=== PATIENT | female | born 1955 | race Caucasian/White ===

== ENCOUNTER 2017-12-18 13:45 | Outpatient (RCR) | payer BC ==
[~2017-12-18 13:45] MED LIST: AC500T; ASCO-262 PO; ASPI-586 PO; ATRV10T; CETI10TA9 PO; CHOL500044 PO; CIPR-225 PO; CRAN1TAB5 PO; EST45C; ESTR0.5T PO; ESTR1TAB24 PO; EXCEDRINE MIGRAINE; FESO4TAB PO; FEXO1TAB49; FISH OIL OMEGA1 EAC1 PO; LISI10TA2 PO; LISI1TAB8 PO; LVT.025T PO; MELO-198 PO; MELO15TA14 PO; MMT17NA; MULT-1038 PO; NITR-65 PO; OMEP20CA6 PO; OXYC-188; PANT40TA3 PO; SIMV40TA4 PO; SRTR100T PO; [UNRECOGNIZED DRUG - OTHER]
[2018-01-29] MEDS ORDERED: CIPR-226 PO (13:48)
== END 2017-12-18 15:03 | disposition home or self-care (01) ==
PROVIDERS: ATTEND Family Medicine
DX: M51.36 Other intervertebral disc degeneration, lumbar region (principal)

== ENCOUNTER 2018-01-28 09:06 | Outpatient (CLI) | payer BC ==
[~2018-01-28] VITALS: Ht 167.6 cm; Wt 121.2 kg
[2018-01-28] MEDS ORDERED: LEVO25TA5 PO (09:31)
[2018-01-28] MEDS ORDERED: SERT100T8 PO (09:31)
[2018-01-28] MEDS ORDERED: CYAN1TAB PO (09:31)
[2018-01-28] MEDS ORDERED: OMEG-126 PO (09:31)
[2018-01-28 09:38] VITALS: BP 145/77
[2018-01-28 10:10] LABS: BASOPHILS % (AUTO) 1 % (0-10); EOSINOPHILS # (AUTO) 0.2 10^3/uL (0.0-0.3); EOSINOPHILS % (AUTO) 3 % (0-10); HEMATOCRIT 38 % (35-52); HEMOGLOBIN 12.9 G/DL (11.5-16.0); LYMPHOCYTES # (AUTO) 1.6 X 10^3 (1.0-4.0); LYMPHOCYTES % (AUTO) 25 % (12-44); MEAN CORPUSCULAR HEMOGLOBIN 29 PG (25-34); MEAN CORPUSCULAR HGB CONC 34 G/DL (32-36); MEAN CORPUSCULAR VOLUME 83 FL (80-99); MEAN PLATELET VOLUME 11.1 FL (7.4-10.4); MONOCYTES # (AUTO) 0.5 X 10^3 (0.0-1.0); MONOCYTES % (AUTO) 8 % (0-12); NEUTROPHILS % (AUTO) 63 % (42-75); PLATELET COUNT 245 10^3/uL (130-400); WHITE BLOOD COUNT 6.4 10^3/uL (4.3-11.0)
[2018-01-28 10:12] LABS: BILIRUBIN,URINE NEGATIVE (NEGATIVE); CLARITY,URINE CLEAR; COLOR,URINE YELLOW; GLUCOSE, URINE (UA) NEGATIVE (NEGATIVE); KETONES,URINE NEGATIVE (NEGATIVE); LEUKOCYTE ESTERASE ,URINE 2+ (NEGATIVE); NITRITE,URINE NEGATIVE (NEGATIVE); PH,URINE 5 (5-9); PROTEIN,URINE NEGATIVE (NEGATIVE); UROBILINOGEN,URINE NORMAL (NORMAL)
[2018-01-28 10:20] LABS: PROTHROMBIN TIME PATIENT 13.1 SEC (12.2-14.7)
[2018-01-28 10:30] LABS: ALANINE AMINOTRANSFERASE 33 U/L (0-55); ALBUMIN 4.2 GM/DL (3.2-4.5); ALKALINE PHOSPHATASE 76 U/L (40-136); BILIRUBIN,TOTAL 0.8 MG/DL (0.1-1.0); BUN/CREATININE RATIO 26; CALCIUM 9.1 MG/DL (8.5-10.1); CARBON DIOXIDE 21 MMOL/L (21-32); CHLORIDE 106 MMOL/L (98-107); CREATININE SERUM 0.74 MG/DL (0.60-1.30); GFR ESTIMATED > 60; GLUCOSE 113 MG/DL (70-105); POTASSIUM 3.8 MMOL/L (3.6-5.0); SODIUM 137 MMOL/L (135-145); TOTAL PROTEIN 6.7 GM/DL (6.4-8.2)
[2018-01-28 10:44] LABS: ERYTHROCYTE SEDIMENTATION RATE 8 MM/HR (0-30)
[2018-01-28 10:47] LABS: BACTERIA,URINE LARGE /HPF; RBC,URINE 0-2 /HPF
--- NOTE | 2018-01-28 13:53 | Diagnostic Imaging Report ---
INDICATION: Preop for right knee arthroplasty. PA and lateral chest obtained at 10:30 a.m. and compared with 10/09/2015. FINDINGS: Heart is mildly enlarged. Mediastinal silhouette is unremarkable. The lungs are clear. There is no pneumothorax or pleural fluid. There are diffuse degenerative changes in the thoracic spine. IMPRESSION: Mild cardiomegaly with no acute process in the chest. Dictated by: Dictated on workstation # [id number]
[2018-01-29] MEDS ORDERED: CIPR-226 PO (13:48)
== END 2018-01-28 16:00 | disposition home or self-care (01) ==
LOC: PREOP 09:06
PROVIDERS: ATTEND Orthopaedic Surgery
DX: Z01.810 Encounter for preprocedural cardiovascular examination (principal); Z01.811 Encounter for preprocedural respiratory examination; Z01.812 Encounter for preprocedural laboratory examination; M17.11 Unilateral primary osteoarthritis, right knee; R53.83 Other fatigue; R82.90 Unspecified abnormal findings in urine; Z11.2 Encounter for screening for other bacterial diseases
CPT/HCPCS: 36415; 71046; 80053; 81000; 85025; 85610; 85652; 86850; 86900; 86901; 87081; 87088; 87186; 93005

== ENCOUNTER 2018-02-03 06:05 | Inpatient (IN) | payer BC ==
--- NOTE | 2018-01-25 11:26 | HISTORY AND PHYSICAL ---
DATE OF SERVICE: 02/03/2018 ADMISSION HISTORY AND PHYSICAL This will be for inpatient admission on 02/03/2018 for right total knee arthroplasty. The patient will require inpatient admission due to comorbidities, gait abnormalities, pain management and physical therapy. Comorbidities include sleep apnea, arthritis, and hypertension. HISTORY: The patient is a 62-year-old female with progressively worsening right knee pain. She reports increasing pain with activities. She has undergone treatment with injections in the past with temporary relief of symptoms. She reports functional impairment because of the knee and because of activity limitations and failure to improve with conservative measures, the patient elected to proceed with surgical intervention. Radiographs reveal complete loss of medial patellofemoral joint spaces without evidence of fracture or dislocation. REVIEW OF SYSTEMS: No chest pain. No shortness of breath. No dysuria. PAST MEDICAL HISTORY: Overactive bladder, hypothyroidism, acid reflux, hypertension, hypercholesterolemia, arthritis, tinnitus, sleep apnea. PAST SURGICAL HISTORY: Tubal ligation, cholecystectomy, hysterectomy, left knee arthroscopy, left total knee arthroplasty, bilateral feet, , lumbar spine. FAMILY HISTORY: Significant for cardiovascular disease. PRIMARY CARE PROVIDER: Dr. Ibrahim. MEDICATIONS: 1. Pantoprazole. 2. Meloxicam. 3. Lisinopril. 4. Sertraline. 5. Simvastatin. 6. Toviaz. 7. Levothyroxine. 8. Vitamin D. 9. Multivitamin. 10. Zyrtec. 11. Adult aspirin. 12. Flonase. 13. Folic acid. 14. Oxycodone. ALLERGIES: SULFA AND LATEX. SOCIAL HISTORY: The patient drinks alcohol occasionally. Denies tobacco use. PHYSICAL EXAMINATION: GENERAL: The patient is well developed, well-nourished, in no acute distress. HEENT: Normocephalic and atraumatic. Pupils are equal, round, and reactive to light. Oropharynx is clear. NECK: Supple. No lymphadenopathy. LUNGS: Clear to auscultation bilaterally. HEART: Regular rate and rhythm. ABDOMEN: Soft, nontender, nondistended. EXTREMITIES EXAM: The right knee demonstrates an antalgic gait on the right. She has varus alignment with slight effusion noted. There is no erythema or warmth. Range of motion is 0/2/130. There is no varus valgus laxity. She is markedly tender along the medial joint line and has pain with Mustapha's. IMPRESSION: Severe right knee osteoarthritis, unresponsive to conservative measures. PLAN: Right total knee arthroplasty. The risks, benefits, options, ramifications and recovery were discussed at length with the patient. She understands and wished to proceed. Job ID: [id number] DocumentID: [id number] Dictated Date: 01/25/2018 10:49:04 Puncher And Fastener Date: 01/25/2018 11:26:07 Dictated By: VALERIE LOPEZ MD
[~2018-02-03] VITALS: Ht 167.6 cm; Wt 121.2 kg
[~2018-02-03 06:05] MED LIST changes: +CIPR-226 PO; +CYAN1TAB PO; +LEVO25TA5 PO; +OMEG-126 PO; +SERT100T8 PO
[2018-02-03 06:10] VITALS: BP 132/73
--- OUTSIDE RECORDS SUMMARY | 2018-02-03 06:12 | XMS REPORT | Continuity of Care Document ---
Author Author [facility] Organization [facility] Address Unknown Phone Unavailable Allergies Active Description Code Type Severity Reaction Onset Reported/Identified Relationship to Patient Clinical Status Yes No Known Drug Allergies [id number] Drug Allergy Unknown N/A 02/07/2008 Yes Sulfa (Sulfonamide Antibiotics) [id number] Drug Allergy Unknown N/A 2014 Yes latex [id number] Drug Allergy Unknown itchy all over 10/09/2015 Yes latex [id number] Drug Allergy Mild RASH/BLISTERS 01/28/2018 Yes Sulfa (Sulfonamide Antibiotics) [id number] Drug Allergy Mild GI UPSET, HIVES 01/28/2018 Medications There is no data. Problems Date Dx Coded Attending Type Code Diagnosis Diagnosed By 04/16/1502 JACQUE IBRAHIM DO Ot M51.36 OTHER INTERVERTEBRAL DISC DEGENERATION, 11/20/2014 PONCHO GIVENS, STEFANY Duff Ot 280.9 IRON DEFIC ANEMIA NOS 11/20/2014 PONCHO GIVENS, STEFANY Duff Ot 531.90 STOMACH ULCER NOS 11/20/2014 PONCHO GIVENS, STEFANY Duff Ot 562.10 DIVERTICULOSIS COLON (W/O MENT OF HEMORR 11/20/2014 STEFANY ISAAC MD Ot 792.1 ABN FIND-STOOL CONTENTS 11/28/2014 PONCHO GIVENS, STEFANY Duff Ot 285.9 11/28/2014 STEFANY ISAAC MD Ot 787.20 11/28/2014 STEFANY ISAAC MD Ot 792.1 11/28/2014 PONCHO GIVENS, STEFANY Duff Ot V72.84 10/09/2015 VALERIE LOPEZ MD Ot M17.12 UNILATERAL PRIMARY OSTEOARTHRITIS, LEFT 10/09/2015 VALERIE LOPEZ MD Ot R53.83 OTHER FATIGUE 10/09/2015 VALERIE LOPEZ MD Ot Z01.812 ENCOUNTER FOR PREPROCEDURAL LABORATORY E 10/09/2015 VALERIE LOPEZ MD Ot Z01.818 ENCOUNTER FOR OTHER PREPROCEDURAL EXAMIN 10/09/2015 VALERIE LOPEZ MD Ot Z11.2 ENCOUNTER FOR SCREENING FOR OTHER BACTER 10/10/2015 VALERIE LOPEZ MD Ot M17.12 UNILATERAL PRIMARY OSTEOARTHRITIS, LEFT 10/10/2015 VALERIE LOPEZ MD Ot R53.83 OTHER FATIGUE 10/10/2015 VALERIE LOPEZ MD Ot Z01.812 ENCOUNTER FOR PREPROCEDURAL LABORATORY E 10/10/2015 VALERIE LOPEZ MD Ot Z01.818 ENCOUNTER FOR OTHER PREPROCEDURAL EXAMIN 10/10/2015 VALERIE LOPEZ MD Ot Z11.2 ENCOUNTER FOR SCREENING FOR OTHER BACTER 10/20/2015 VALERIE LOPEZ MD Ot E03.9 HYPOTHYROIDISM, UNSPECIFIED 10/20/2015 VALERIE LOPEZ MD Ot E66.01 MORBID (SEVERE) OBESITY DUE TO EXCESS CA 10/20/2015 VALERIE LOPEZ MD Ot E78.0 PURE HYPERCHOLESTEROLEMIA 10/20/2015 VALERIE LOPEZ MD Ot H93.19 TINNITUS, UNSPECIFIED EAR 10/20/2015 VALERIE LOPEZ MD Ot I10 ESSENTIAL (PRIMARY) HYPERTENSION 10/20/2015 VALERIE LOPEZ MD Ot K21.9 GASTRO-ESOPHAGEAL REFLUX DISEASE WITHOUT 10/20/2015 VALERIE LOPEZ MD, Ot M17.12 UNILATERAL PRIMARY OSTEOARTHRITIS, LEFT 10/20/2015 VALERIE LOPEZ MD Ot N39.0 URINARY TRACT INFECTION, SITE NOT SPECIF 10/20/2015 VALERIE LOPEZ MD Ot Z68.41 BODY MASS INDEX (BMI) 40.0-44.9, ADULT 11/30/2015 VALERIE LOPEZ MD Ot Z47.1 AFTERCARE FOLLOWING JOINT REPLACEMENT FELIZ 11/30/2015 VALERIE LOPEZ MD Ot Z96.652 PRESENCE OF LEFT ARTIFICIAL KNEE JOINT 10/29/2017 STEFANY ISAAC MD Ot 285.9 ANEMIA NOS 10/29/2017 STEFANY ISAAC MD Ot 787.20 DYSPHAGIA, UNSPECIFIED 10/29/2017 STEFANY ISAAC MD Ot 792.1 ABN FIND-STOOL CONTENTS 10/29/2017 STEFANY ISAAC MD Ot V72.84 EXAM PRE-OPERATIVE NOS 12/03/2017 JACQUE IBRAHIM DO Ot M51.36 OTHER INTERVERTEBRAL DISC DEGENERATION, 12/18/2017 JACQUE IBRAHIM DO Ot M51.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 10/17/2015 Results Test Result Range Methicillin resistant Staphylococcus aureus (MRSA) screening culture - 09:45 Methicillin resistant Staphylococcus aureus (MRSA) screening culture NEG NRG Complete blood count (CBC) with automated white blood cell (WBC) differential - 01/28/18 09:50 Blood leukocytes automated count (number/volume) 6.4 10*3/uL 4.3-11.0 Blood erythrocytes automated count (number/volume) 4.50 10*6/uL 4.35-5.85 Venous blood hemoglobin measurement (mass/volume) 12.9 g/dL 11.5-16.0 Blood hematocrit (volume fraction) 38 % 35-52 Automated erythrocyte mean corpuscular volume 83 [foz_us] 80-99 Automated erythrocyte mean corpuscular hemoglobin (mass per erythrocyte) 29 pg 25-34 Automated erythrocyte mean corpuscular hemoglobin concentration measurement ( mass/volume) 34 g/dL 32-36 Automated erythrocyte distribution width ratio 14.0 % 10.0-14.5 Automated blood platelet count (count/volume) 245 10*3/uL 130-400 Automated blood platelet mean volume measurement 11.1 [foz_us] 7.4-10.4 Automated blood neutrophils/100 leukocytes 63 % 42-75 Automated blood lymphocytes/100 leukocytes 25 % 12-44 Blood monocytes/100 leukocytes 8 % 0-12 Automated blood eosinophils/100 leukocytes 3 % 0-10 Automated blood basophils/100 leukocytes 1 % 0-10 Blood neutrophils automated count (number/volume) 4.0 10*3 1.8-7.8 Blood lymphocytes automated count (number/volume) 1.6 10*3 1.0-4.0 Blood monocytes automated count (number/volume) 0.5 10*3 0.0-1.0 Automated eosinophil count 0.2 10*3/uL 0.0-0.3 Automated blood basophil count (count/volume) 0.0 10*3/uL 0.0-0.1 Comprehensive metabolic panel - 01/28/18 09:50 Serum or plasma sodium measurement (moles/volume) 137 mmol/L 135-145 Serum or plasma potassium measurement (moles/volume) 3.8 mmol/L 3.6-5.0 Serum or plasma chloride measurement (moles/volume) 106 mmol/L 98-107 Carbon dioxide 21 mmol/L 21-32 Serum or plasma anion gap determination (moles/volume) 10 mmol/L 5-14 Serum or plasma urea nitrogen measurement (mass/volume) 19 mg/dL 7-18 Serum or plasma creatinine measurement (mass/volume) 0.74 mg/dL 0.60-1.30 Serum or plasma urea nitrogen/creatinine mass ratio 26 NRG Serum or plasma creatinine measurement with calculation of estimated glomerular filtration rate > NRG Serum or plasma glucose measurement (mass/volume) 113 mg/dL 70-105 Serum or plasma calcium measurement (mass/volume) 9.1 mg/dL 8.5-10.1 Serum or plasma total bilirubin measurement (mass/volume) 0.8 mg/dL 0.1-1.0 Serum or plasma alkaline phosphatase measurement (enzymatic activity/volume) 76 U/L 40-136 Serum or plasma aspartate aminotransferase measurement (enzymatic activity/ volume) 30 U/L 5-34 Serum or plasma alanine aminotransferase measurement (enzymatic activity/volume ) 33 U/L 0-55 Serum or plasma protein measurement (mass/volume) 6.7 g/dL 6.4-8.2 Serum or plasma albumin measurement (mass/volume) 4.2 g/dL 3.2-4.5 CALCIUM CORRECTED 8.9 mg/dL 8.5-10.1 PT panel in platelet poor plasma by coagulation assay - 01/28/18 09:50 Prothrombin time (PT) in platelet poor plasma by coagulation assay 13.1 s 12.2-14.7 INR in platelet poor plasma or blood by coagulation assay 1.0 0.8-1.4 Erythrocyte sedimentation rate by westergren method - 01/28/18 09:50 Erythrocyte sedimentation rate by westergren method 8 mm 0-30 Blood type T Indirect antibody screen panel - 01/28/18 09:50 ABO+Rh group OP NRG Blood group antibody screen NEGATIVE NRG Complete urinalysis with reflex to culture - 01/28/18 09:55 Urine color determination YELLOW NRG Urine clarity determination CLEAR NRG Urine pH measurement by test strip 5 5-9 Specific gravity of urine by test strip 1.020 1.016- 1.022 Urine protein assay by test strip, semi-quantitative NEGATIVE NEGATIVE Urine glucose detection by automated test strip NEGATIVE NEGATIVE Erythrocytes detection in urine sediment by light microscopy 1+ NEGATIVE Urine ketones detection by automated test strip NEGATIVE NEGATIVE Urine nitrite detection by test strip NEGATIVE NEGATIVE Urine total bilirubin detection by test strip NEGATIVE NEGATIVE Urine urobilinogen measurement by automated test strip (mass/volume) NORMAL NORMAL Urine leukocyte esterase detection by dipstick 2+ NEGATIVE Automated urine sediment erythrocyte count by microscopy (number/high power field) [HPF] NRG Automated urine sediment leukocyte count by microscopy (number/high power field ) [HPF] NRG Bacteria detection in urine sediment by light microscopy LARGE NRG Squamous epithelial cells detection in urine sediment by light microscopy 2-5 NRG Crystals detection in urine sediment by light microscopy NONE NRG Casts detection in urine sediment by light microscopy NONE NRG Mucus detection in urine sediment by light microscopy NEGATIVE NRG Complete urinalysis with reflex to culture YES NRG Bacterial urine culture - 01/28/18 09:55 Bacterial urine culture [id number] NRG COLONY COUNT >100,000/ML NRG FTX;REPORTABLE RML SENT SENSITIVITY REPORT 01/30 09:05 NRG RML Sensitivity Panel - 01/28/18 09:55 Gentamicin susceptibility test by minimum inhibitory concentration < = NRG Trimethoprim/sulfamethoxazole susceptibility test by minimum inhibitoryconcentration <= NRG Levofloxacin susceptibility test by minimum inhibitory concentration > NRG Ampicillin susceptibility test by minimum inhibitory concentration < = NRG Cefazolin susceptibility test by minimum inhibitory concentration < = NRG Ceftriaxone susceptibility test by minimum inhibitory concentration <= NRG Ciprofloxacin susceptibility test by minimum inhibitory concentration > NRG Meropenem susceptibility test by minimum inhibitory concentration < = NRG Nitrofurantoin susceptibility test by minimum inhibitory concentration <= NRG Amoxicillin and clavulanate potassium susc TY <= NRG Encounters ACCT No. Visit Date/Time Discharge Status Pt. Type Provider Facility Loc./Unit Complaint [id number] 01/28/2018 09:06:00 01/28/2018 16:00:00 DIS Outpatient VALERIE LOPEZ MD [facility] PREOP OSTEOARTHRITIS RIGHT KNEE [id number] 12/18/2017 13:45:00 12/18/2017 15:03:00 DIS [id number] 11/30/2015 13:00:00 11/30/2015 15:20:00 DIS Outpatient VALERIE LOPEZ MD [facility] REHAB OA L KNEE [id number] 10/17/2015 06:02:00 10/20/2015 14:45:00 DIS Inpatient VALERIE LOPEZ MD [facility] 4TH LEFT KNEE DJD [id number] 10/09/2015 08:30:00 10/09/2015 09:35:00 DIS Outpatient VALERIE LOPEZ MD [facility] PREOP LEFT KNEE DJD [id number] 11/20/2014 09:51:00 11/20/2014 12:30:00 DIS Outpatient PONCHO GIVENS, STEFANY Duff [facility] ANEMIA; DIFFICULTY SWALLOWING; HEMOCCULT + STOOLS [id number] 11/16/2014 06:35:00 11/16/2014 23:59:59 CLS Outpatient PONCHO GIVENS, STEFANY Duff [facility] PREOP ANEMIA; DIFFICULTY SWALLOWING; HEMOCCULT + STOOLS [id number] 10/01/2012 11:23:00 10/01/2012 23:59:59 CLS Outpatient [id number] 02/03/2018 08:00:00 PEN Preadmit VALERIE LOPEZ MD OSTEOARTHRITIS RIGHT KNEE 07/201711/01/2017 06:12:40 11/01/2017 23:59:59 CLS Outpatient Jacque Ibrahim
[2018-02-03] MEDS ORDERED: CEFUROXIME INJECTION 1,500 MG in NS (IVPB) 50 ML IV ONE (06:30)
[2018-02-03] MEDS ORDERED: MIDAZOLAM 2 MG/2 ML (VERSED) VIAL ONE ×2 (06:31→06:58)
[2018-02-03] MEDS ORDERED: FAMOTIDINE 20MG/2ML IV (PEPCID) IV ONE (06:45)
[2018-02-03] MEDS ORDERED: proPOfol 200 MG/20 ML (DIPRIVAN) VIAL IV ONE (06:58)
[2018-02-03] MEDS ORDERED: ONDANSETRON 4 MG/2 ML (SDV) Z0FRAN ONE (06:58)
[2018-02-03] MEDS ORDERED: DEXAMETHASONE 10 MG/ML (DECADRON) 1 ML VIAL ONE (06:58)
[2018-02-03] MEDS ORDERED: fentaNYL INJECTION 100 MCG/2 ML AMP ONE (06:58)
[2018-02-03] MEDS ORDERED: LIDOCAINE PF 2% 2 ML (XYLOCAINE) VIAL ONE (06:58)
[2018-02-03] MEDS ORDERED: SEVOFLURANE (ULTANE) 15 ML INHAL SOLN ONE ×4 (07:07→08:34)
[2018-02-03] MEDS: LACTATED RINGERS 1,000 ML IV PRN ×2 (07:09→08:18)
--- NOTE | 2018-02-03 07:24 | Progress Note-Pre Operative ---
Pre-Operative Progress Note H&P Reviewed The H&P was reviewed, patient examined and no changes noted. Date Seen by Provider: Feb 03, 2018 Time Seen by Provider: 07:11 Date H&P Reviewed: Feb 03, 2018 Time H&P Reviewed: 07:11 Pre-Operative Diagnosis: right knee primary osteoarthritis VALERIE LOPEZ MD Feb 03, 2018 07:24
--- NOTE | 2018-02-03 07:25 | Progress Note-Post Operative ---
Post-Operative Progess Note Surgeon (s)/Fur Examiner (s) Surgeon VALERIE LOPEZ MD Fur Examiner: Eduardo Read Pre-Operative Diagnosis right knee primary osteoarthritis Post-Operative Diagnosis right knee primary osteoarthritis Procedure & Operative Findings Date of Procedure 02/03/18 Procedure Performed/Findings right total knee arthroplasty Anesthesia Type GETA Estimated Blood Loss Estimated blood loss (mL): minimal Specimens/Packing Specimens Removed none Packing: none VALERIE LOPEZ MD Feb 03, 2018 07:25
[2018-02-03] MEDS ORDERED: OXYC1TAB87 PO (07:27)
--- NOTE | 2018-02-03 07:29 | D/C HH Face to Face Order ---
D/C Face to Face Orders Instructions for Patient Patient Instructions/FollowUp: three weeks Physician to follow Patient: three weeks Discharge Diet for Home: Regular Diet Patient Data-Allergies,Ht & Wt Patient Allergies: Coded Allergies: Sulfa (Sulfonamide Antibiotics) (Unverified Allergy, Mild, GI UPSET, HIVES , 01/28/18) latex (Verified Allergy, Mild, RASH/BLISTERS, 01/28/18) Height (Feet): 5 Height (Inches): 6.00 Weight (Pounds): 267 Weight (Ounces): 2.0 Home Health Need/Face to Face Date of Face to Face: Feb 03, 2018 Clinical Findings: Instability, Muscle weakness, Pain with ambulation, Unsteady gait I have seen Pt [id number]: Yes Discharged To: Home Diagnosis/Conditions: right total knee arthroplasty Patient is Homebound due to: Muscle weakness Homebound Status Due to the above stated illness, injury or surgical procedure (medical condition or diagnosis) and associated clinical findings, the patient is homebound because of his/her inability to leave home except with aid of a supportive device and/or person AND leaving the home requires a considerable and taxing effort or is medically contraindicated. Pt req the following assistanc: [facility] Nursing Orders Home Health Services Order: Physical Therapy-Evaluate & Treat Home Health Infusion Therapy Line Start Date: Feb 03, 2018 Line Start Time: 624 Line Type: Peripheral IV Site Location: Forearm Therapy Orders Therapy Orders: Physical Therapy, PT to assess for OT Therapy Specific Orders: Eval assistive deivces (DC right knee morenita and apply steri strips 02/17/18), Teach enviro modifications/safety, Gait training, Increase strength/endurance, Provider maintenance therapy, Restore ROM Certify Stmt I certify that this patient is under my care and that I, a nurse practitioner or a physician; a dietary assistant working with me, had a face to face encounter that - meets the physician face to face encounter requirements with this patient as dated. VALERIE LOPEZ MD Feb 03, 2018 07:29
[2018-02-03] MEDS ORDERED: INTRA-ARTICULAR IU ONE ×5 (07:30)
[2018-02-03] MEDS ORDERED: diphenhydrAMINE 50 MG/ML INJ (BENADRYL) IVP PRN (07:30)
[2018-02-03] MEDS ORDERED: ONDANSETRON 4 MG/2 ML (SDV) Z0FRAN IVP PRN ×2 (07:30→09:15)
[2018-02-03] MEDS ORDERED: oxyCODONE/APAP 5/325MG (PERCOCET 5) TABLET PO PRN (07:30)
[2018-02-03] MEDS ORDERED: ROCURONIUM 10 MG/ML 5 ML SYRINGE IV ONE (07:51)
[2018-02-03] MEDS ORDERED: morphine INJ 10 MG/ML 1ML (SYR OR VIAL) ONE (08:48)
[2018-02-03] MEDS ORDERED: MEPERIDINE (DEMEROL) INJ 50 MG/ML IVP ONE (09:15)
[2018-02-03] MEDS ORDERED: fentaNYL INJECTION 100 MCG/2 ML AMP IVP ONE (09:15)
[2018-02-03] MEDS ORDERED: morphine INJ 10 MG/ML 1ML (SYR OR VIAL) IVP ONE (09:15)
[2018-02-03 10:10] VITALS: BP 134/66
--- NOTE | 2018-02-03 10:16 | Progress Note-Standard ---
Standard Progress Note Progress Notes/Assess & Plan Date Seen by a Provider: Feb 03, 2018 Time Seen by a Provider: 09:30 Progress/Assessment & Plan NO complaints radiographs--HW well positioned without fracture RLE--intact DF and PF of toes and ankle. sensation intact. 2 plus DP pulse with brisk cap refill s/p RTKA mobilize as able VALERIE LOPEZ MD Feb 03, 2018 10:16
--- NOTE | 2018-02-03 10:18 | OPERATIVE REPORT ---
DATE OF SERVICE: 02/03/2018 PREOPERATIVE DIAGNOSIS: Right knee primary osteoarthritis. POSTOPERATIVE DIAGNOSIS: Right knee primary osteoarthritis. PROCEDURE: Right total knee arthroplasty. SURGEON: Ochoa Lopez MD. ASSOCIATE PATHOLOGIST: Eduardo Read, who assisted throughout the procedure and closed the incision. ANESTHESIA: General endotracheal by Eduardo Beltran CRNA. TOURNIQUET TIME: Tourniquet time is 55 minutes at 300 mmHg. ESTIMATED BLOOD LOSS: Minimal. DRAINS: None. COMPLICATIONS: None. POSTOPERATIVE PLAN: Routine total knee arthroplasty protocol. The patient was transferred to the recovery room awake and in stable condition. MATERIALS: MicroPort cemented size 5 femur, cemented size 5 tibia with a 12 mm insert and a cemented size 32 patellar button. STATEMENT OF MEDICAL NECESSITY: The patient is a 62-year-old female with a longstanding progressive right knee pain. Radiographs reveal complete loss of medial and patellofemoral joint spaces. She has undergone treatment with injections, anti-inflammatories and rest without relief. She reported functional impairment in her knee. Due to progressive symptoms and failure to improve with conservative measures, the patient elected to proceed with surgical intervention. DESCRIPTION OF PROCEDURE: After risks and benefits of the procedure were discussed and questions were answered, an informed consent was signed and placed on the chart. The operative site was confirmed in the preoperative holding area initialed by the surgeon. The patient was transported to the operating room and after adequate levels of general endotracheal anesthetic were obtained, a timeout was called confirming the operative site. The right lower extremity was then prepped and draped in the usual sterile fashion with the leg elevated and tourniquet was inflated to 300 mmHg. Standard anterior approach was utilized. Hemostasis was obtained with a cautery. A medial parapatellar arthrotomy was performed leaving 1 cm cuff on the patella for later reattachment. A portion of the fat pad was resected and a subperiosteal release was performed at the proximal and medial tibia with a curved osteotome being careful to stay on the bony surfaces. The ACL was resected. The intramedullary guide was passed into the femur and the distal cutting block was placed. The distal cut was made and the femur was sized to a size 5. The 5 cutting block was placed parallel to the epicondylar axis and cuts were made from posterior to anterior. The trochlear guide was placed and the trochlear cut was made. A subperiosteal release was then carefully performed on the posterior distal femur, being careful to stay on the bony surface. Intramedullary guide was then passed into the tibia and the cutting block was placed. The drop melecio transected the intermalleolar axis and the cut was made. The #5 baseplate was placed. Again, the drop melecio transected the intermalleolar axis and this was prepared with a drill and keel punch. The trials were inserted and the patella was prepared using the freehand technique. A peg guide was placed and the peg holes were drilled. A 12 mm insert provided full extension with greater than 120 degrees of flexion with gravity. No anterior/posterior or medial/lateral laxity in flexion or extension. The tibia was then prepared with a drill and keel punch. The trials were removed. The joint was irrigated with a pulse lavage. The periarticular block was placed in the posterior capsule, medial and lateral retinaculum, extensor mechanism and subcutaneous tissues. The joint was further irrigated. The bone ends were irrigated and dried. The tibial baseplate was cemented into position. Excessive cement was removed. The superior surface was irrigated and dried and the polyethylene insert was placed. Distal femur was irrigated and dried and the femoral prosthesis was cemented into position removing excess cement. The knee was brought into full extension until the cement had cured. The undersurface of the patella was irrigated and dried. The patellar button was cemented into position. Excessive cement was removed. Once the cement had cured, the knee was taken through range of motion. Full extension was easily obtained in 120 degrees of flexion with gravity was easily obtained. The patella tracked well. There was no anterior/posterior or medial/lateral laxity in flexion or extension. The joint was further irrigated with a pulse lavage using a total of 6 liters throughout the procedure. The arthrotomy was closed with #2 FiberWire in a [id number] interrupted fashion. The knee was flexed. No undue tension at the repair site and the patella tracked well. Subcutaneous tissues were irrigated. A 2-0 Vicryl was used to reapproximate the deep layer and 2-0 Vicryl for the superficial subcutaneous layer, morenita were used on the skin. Soft dressing was applied. The tourniquet was deflated and the patient was transferred to the recovery room in awake and in stable condition. Job ID: [id number] DocumentID: [id number] Dictated Date: 02/03/2018 09:08:47 Tobacco Stripper Hand Date: 02/03/2018 10:17:47 Dictated By: OCHOA LOPEZ MD
[2018-02-03] MEDS: NS IV 1000 ML 1,000 ML IV SCH ×3 (10:35→21:42)
[2018-02-03] MEDS: morphine PCA 30 MG/30 ML VIAL IV PRN (10:38)
--- NOTE | 2018-02-03 11:15 | Diagnostic Imaging Report ---
Right knee at 9:50. AP and lateral views of the right knee were received from the OR. There are no prior studies available for comparison. There is a total knee prosthesis in place. The prosthetic components appear to be in good position. There are skin morenita along the anterior aspect of the knee joint and there is some gas in the soft tissues about the anterior aspect of the knee joint as well. There is no fracture or acute bony abnormality noted. Impression: Stable postoperative right knee. Dictated by: Dictated on workstation # [id number]
[2018-02-03 12:54] VITALS: BP 122/61
[2018-02-03] MEDS: SENNA W/DOCUSATE (SENOKOT S) TABLET PO SCH ×2 (13:54→21:30)
[2018-02-03] MEDS ORDERED: FLU QUADRIvalent (5+ YOA) 2018-2019 (AFLURIA) 0.5 ML IM ONE (14:00)
[2018-02-03] MEDS: oxyCODONE/APAP 5/325MG (PERCOCET 5) TABLET PO PRN ×2 (14:35→21:30)
--- NOTE | 2018-02-03 15:06 | Physical Therapy Evaluation ---
PT Evaluation-General Medical Diagnosis Admission Date Feb 03, 2018 at 06:05 Medical Diagnosis: R TKA Onset Date: Feb 03, 2018 Therapy Diagnosis Therapy Diagnosis: impaired mobility, strength, balance, and ROM s/p R TKA Height/Weight Height (Feet): 5 Height (Inches): 6.00 Weight (Pounds): 267 Weight (Ounces): 2.0 Precautions Precautions/Isolations: Standard Precautions Weight Bear Status Right Lower Extremity: Right Weight Bearing/Tolerated Left Lower Extremity: Left Full Weight Bearing Referral Physician: Daniel Reason for Referral: Evaluation/Treatment Medical History Pertinent Medical History: Arthritis, HTN, Hypothroidism Additional Medical History PAST MEDICAL HISTORY: Overactive bladder, hypothyroidism, acid reflux, hypertension, hypercholesterolemia, arthritis, tinnitus, sleep apnea. PAST SURGICAL HISTORY: Tubal ligation, cholecystectomy, hysterectomy, left knee arthroscopy, left total knee arthroplasty, bilateral feet, , lumbar spine. Reviewed History: Yes Social History Home: Single Level Current Living Status: Spouse Entry Into Home: Stairs With Railing PT Steps Into Home: 2 Prior/Core FIM Prior Level of Function Functional [place] Measure 0=Not Assessed/NA 4=Minimal Assistance 1=Total Assistance 5=Supervision or Setup 2=Maximal Assistance 6=Modified [place] 3=Moderate Assistance 7=Complete [place] Bed Mobility: 7 Transfers (B,C,W/C) (FIM): 7 Gait: 7 PT Evaluation-Current Subjective pt in bed pre tx, agrees to PT, pain 5/10 R knee Pt/Family Goals to be more active and independent in the community and at home Objective Patient Orientation: Person, Place, Situation Attachments: SCD's, Oxygen, Polar Pack, IV ROM/Strength ROM Lower Extremities right knee flexion 60 degrees, extension +5 degrees Strength Lower Extremities decreased R dorsiflexion Neuromuscular (Tone, Coordination, Reflexes) NT Sensory Vision: Functional Hearing: Functional Sensation Right Lower Extremit: Intact Sensation Left Lower Extremity: Intact Sensation Lower Extremities pt notes numbness in R lateral calf and foot, but light touch sensation intact Transfers Functional [place] Measure 0=Not Assessed/NA 4=Minimal Assistance 1=Total Assistance 5=Supervision or Setup 2=Maximal Assistance 6=Modified [place] 3=Moderate Assistance 7=Complete [place] Transfers (B, C, W/C) (FIM): 4 Scootin Rollin Supine to/from Sit: 4 Sit to/from Stand: 4 supine<->sit Adam w/ getting RLE into/out of bed, sit<->stand CGA, cues needed to push off bed instead of grabbing walker Gait Mode of Locomotion: Walk Anticipated Mode of Locomotion: Walk Gait (FIM): 1 Distance (FIM): 1=up to 49 ft Distance: 15' Gait Level of Assist: 4 Gait Persons Needed: 1 Gait Assistive Device: FWW Comments/Gait Description pt ambulates 15' w/ FWW and CGA, pt takes short shuffled steps and demonstrates R foot drop, but no LOB Balance Sitting Static: Normal Sitting Dynamic: Normal Standing Static: Normal Standing Dynamic: Normal Treatment right TKA protocol x10 (AP, QS, HS, SAQ, SLR), CPM donned and set to patient and set to 50/-2, patient in bed post tx with nurse call, phone, tray, family in the room. Polar care and SCD's on. Assessment/Needs impaired strength, ROM, balance, and mobility s/p R TKA Rehab Potential: Fair PT Short Term Goals Short Term Goals Time Frame: Feb 10, 2018 Transfers (B,C,W/C) (FIM): 5 Gait (FIM): 5 Distance (FIM): 3=150 ft Gait Distance Comment: 200' Gait Level of Assist: 5 Gait Assistive Device: FWW PT Plan Problem List Problem List: Activity Tolerance, Functional Strength, Safety, Balance, Gait, Transfer, Bed Mobility, ROM Treatment/Plan Treatment Plan: Continue Plan of Care Treatment Plan: Bed Mobility, Education, Functional Activity Santy, Functional Strength, Gait, Safety, Therapeutic Exercise, Transfers Treatment Duration: Feb 10, 2018 Frequency: 11 times per week Estimated Hrs Per Day: .25 hour per day (15-30') Patient and/or Family Agrees t: Yes Safety Risks/Education Patient Education: Gait Training, Transfer Techniques, Reviewed Precautions, Reviewed Use of Ice, Correct Positioning, Safety Issues Teaching Recipient: Patient Teaching Methods: Demonstration, Discussion Response to Teaching: Reinforcement Needed Discharge Recommendations Plan Pt will perform bed mobility and transfer training, gait training, balance training, functional strengthening/AROM, endurance training, and education to be more active and independent in the community and at home. Therapy D/C Recommendations: Home w/ Family Support Time/GCodes Time In: 1435 Time Out: 1500 Total Billed Treatment Time: 25 Total Billed Treatment 1 visit EVL 15' GT 10' KRTEK,ARACELIS PT Feb 03, 2018 15:06
[2018-02-03] MEDS: CEFUROXIME INJECTION 750 MG in NS (IVPB) 50 ML IV SCH (15:22)
[2018-02-03 16:45] VITALS: BP 120/60
--- NOTE | 2018-02-03 19:49 | Consultation ---
History of Present Illness History of Present Illness Patient Consulted On(lily/time) 02/03/18 19:43 Date Seen by Provider: Feb 03, 2018 Time Seen by Provider: 19:44 History of Present Illness This is a 62 year old female who is status right total knee arthroplasty. Her pain is currently well controlled. I am asked to consult for medical management. Allergies and Home Medications Allergies Coded Allergies: Sulfa (Sulfonamide Antibiotics) (Unverified Allergy, Mild, GI UPSET, HIVES , 01/28/18) latex (Verified Allergy, Mild, RASH/BLISTERS, 01/28/18) Home Medications Aspirin 81 Mg Tablet.dr, 162 MG PO DAILY, (Reported) TAKES 2 (81MG) TABLETS Cetirizine HCl 10 Mg Tablet, 10 MG PO HS, (Reported) Cholecalciferol (Vitamin D3) 5,000 Unit Tablet, 5,000 UNIT PO DAILY, (Reported) Cyanocobalamin/FA/Pyridoxine 1 Each Tablet, 1 TAB PO HS, (Reported) Fesoterodine Fumarate 4 Mg Tab.sr.24h, 4 MG PO HS, (Reported) Levothyroxine Sodium 25 Mcg Tablet, 25 MCG PO DAILY, (Reported) Lisinopril/Hydrochlorothiazide 1 Each Tablet, 1 TAB PO DAILY, (Reported) Meloxicam 15 Mg Tablet, 15 MG PO DAILY, (Reported) Multivit/Iron/FA/K/Herb No.244 1 Each Tablet, 1 TAB PO DAILY, (Reported) [place]-3/Dha/Epa/Fish Oil 1 Each Capsule.dr, 1,200 MG PO DAILY, (Reported) Oxycodone HCl/Acetaminophen 1 Each Tablet, 1 EACH PO Q4H PRN for PAIN-MODERATE Prescribed by: VALERIE LOPEZ on 02/03/18 0727 Pantoprazole Sodium 40 Mg Tablet.dr, 40 MG PO HS, (Reported) Sertraline HCl 100 Mg Tablet, 100 MG PO DAILY, (Reported) Simvastatin 40 Mg Tablet, 40 MG PO HS, (Reported) Patient Home Medication List Home Medication List Reviewed: Yes Past Jbeumsq-Lbnswf-Cfzwjj Hx Patient Social History Alcohol Use: Denies Use Recreational Drug Use: No Smoking Status: Never a Smoker Recent Foreign Travel: No Contact w/Someone Who Travel: No Recent Infectious Disease Expo: No Recent Hopitalizations: No Physical Abuse: No Sexual Abuse: No Mistreated: No Fear: No Seasonal Allergies Seasonal Allergies: Yes Past Medical History Surgeries: Yes (back sx, right knee scope, bilat foot sx, L TKR) Respiratory: Yes Sleep Apnea Currently Using CPAP: Yes Cardiac: Yes Neurological: Yes (NUMBNESS IN FEET) Reproductive Disorders: No Sexually Transmitted Disease: No HIV/AIDS: No Genitourinary: Yes (GETS UTI EVERYTIME HAS SURGERY) UTI-Chronic Gastrointestinal: Yes (HX ULCER) Gastroesophageal Reflux, Ulcer Musculoskeletal: Yes (OSTEOARTHRITS) Arthritis, Chronic Back Pain Endocrine: Yes Hypothyroidsim HEENT: Yes (READING GLASSES) Loss of Vision: Bilateral Hearing Impairment: Hard of Hearing, Bilateral Hearing Aide Cancer: No Psychosocial: Yes Anxiety Integumentary: No Blood Disorders: No Adverse Reaction/Blood Tranf: No (N/A) Family Medical History Arthritis 19 FATHER 19 MOTHER G8 BROTHER G8 SISTER Completed stroke 19 FATHER Diabetes mellitus 19 MOTHER Hypertension 19 FATHER 19 MOTHER G8 BROTHER G8 SISTER Kidney disease G8 SISTER Thyroid disease G8 SISTER Review of Systems-General Constitutional: weakness EENTM: No see HPI, No no symptoms reported, No ear discharge, No hearing loss, No ear pain, No blurred vision, No double vision, No eye pain, No tearing, No vision loss, No dental problems, No hoarseness, No mouth pain, No mouth swelling , No epistaxis, No nose congestion, No nose pain, No throat pain, No throat swelling, No other Respiratory: No no symptoms reported, No see HPI, No cough, No dyspnea on exertion, No hemoptysis, No orthopnea, No phlegm, No short of breath, No stridor , No wheezing, No other Cardiovascular: edema Gastrointestinal: No RUQ, No LUQ, No RLQ, No LLQ, No no symptoms reported, No see HPI, No abdominal pain, No constipation, No diarrhea, No dysphagia, No hematemesis, No heartburn, No jaundice, No loss of appetite, No melena, No nausea, No vomiting, No other Genitourinary: No no symptoms reported, No see HPI, No decreased output, No discharge, No dysuria, No frequency, No hematuria, No hesitancy, No incontinence , No nocturia, No pain, No other Musculoskeletal: joint pain (right knee) Psychiatric/Neurological: Weakness Physical Exam-General Problems Physical Exam Vital Signs Vital Signs - First Documented 02/03/18 02/03/18 06:10 10:10 Temp 98.7 Pulse 64 Resp 18 B/P (MAP) 132/73 (92) Pulse Ox 95 O2 Delivery Room Air O2 Flow Rate 2.00 Capillary Refill : General Appearance: WD/WN, no apparent distress Neck: supple Respiratory: lungs clear, decreased breath sounds, other (wearing oxygen) Cardiovascular: regular rate, rhythm, gallop/S4 Gastrointestinal: normal bowel sounds, non tender, soft Rectal: deferred Back: no CVA tenderness Extremities: non-tender, no calf tenderness, swelling (mild with JOSE hose in place and SCDs) Neurologic/Psychiatric: alert, oriented x 3 Skin: warm/dry, other (right knee dressing in place and dry) Assessment/Plan Assessment/Plan Admission Diagnosis/Plan 1. Hypertension--restart home lisinopril hct and monitor BP 2. ANNIE--resume home CPAP settings 3. Hypothyroidism--resume levothyroxine 4. Hyperlipidemia--resume pravachol 5. GERD--resume protonix 6. Right Knee Osteoarthritis/Pain--S/P right total knee arthroplasty--pain control, monitor BMs, lovenox for DVT prophylaxis, PT, IS Clinical Quality Measures DVT/VTE Risk/Contraindication: Risk Factor Score Per Nursin RFS Level Per Nursing on Admit: 3=High JACQUE MOLINA DO Feb 03, 2018 19:49
[2018-02-03 20:25] VITALS: BP 136/65
[2018-02-03] MEDS: PANTOPRAZOLE 40 MG (PROTONIX) TAB PO SCH (21:29)
[2018-02-03] MEDS: TOLTERODINE LA 2 MG (DETROL LA) CAP PO SCH (21:30)
[2018-02-03] MEDS: SIMvastatin 40 MG (ZOCOR) TAB PO SCH (21:30)
[2018-02-03] MEDS: ACETAMINOPHEN 325 MG TABLET PO PRN (21:31)
[2018-02-04] MEDS: CEFUROXIME INJECTION 750 MG in NS (IVPB) 50 ML IV SCH (00:18)
[2018-02-04 00:31] VITALS: BP 126/58
[2018-02-04] MEDS: oxyCODONE/APAP 5/325MG (PERCOCET 5) TABLET PO PRN ×4 (01:39→21:23)
[2018-02-04 04:32] VITALS: BP 125/63
[2018-02-04] MEDS: VITAMIN D3 5,000 UNITS (CHOLECALCIFEROL ) CAPSULE PO SCH (06:17)
[2018-02-04] MEDS: LEVOTHYROXINE 25 MCG (LEVOTHROID) TAB PO SCH (06:18)
[2018-02-04] MEDS: MULTIVIT W/MINERALS TAB (THERAGRAN M) PO SCH (06:18)
[2018-02-04 06:46] LABS: HEMOGLOBIN 11.1 G/DL (11.5-16.0)
[2018-02-04] MEDS ORDERED: MULTIVIT W/MINERALS TAB (THERAGRAN M) PO SCH (07:00)
--- NOTE | 2018-02-04 07:04 | Anesthesia-General Post-Op ---
General Patient Condition Mental Status/LOC: Same as Preop Cardiovascular: Satisfactory Nausea/Vomiting: Absent Respiratory: Satisfactory Pain: Controlled Complications: Absent Post Op Complications Complications None Follow Up Care/Instructions Patient Instructions None needed. Anesthesia/Patient Condition Patient Condition Patient is doing well, no complaints, stable vital signs, no apparent adverse anesthesia problems. No complications reported per nursing. MARIANO CONSTANTINO CRNA Feb 04, 2018 07:04
[2018-02-04] MEDS ORDERED: ENOXAPARIN 30 MG/0.3 ML (LOVENOX) SYR SC SCH (07:30)
--- NOTE | 2018-02-04 07:58 | Progress Note-Standard ---
Standard Progress Note Progress Notes/Assess & Plan Date Seen by a Provider: Feb 04, 2018 Time Seen by a Provider: 07:57 Progress/Assessment & Plan NO complaints radiographs--HW well positioned without fracture RLE--intact DF and PF of toes and ankle. sensation intact. 2 plus DP pulse with brisk cap refill s/p RTKA mobilize as able Final Diagnosis NO complaints Vital Signs Date Time Temp Pulse Resp B/P (MAP) Pulse Ox O2 Delivery O2 Flow Rate FiO2 02/04/18 04:32 98.6 69 18 125/63 (83) 96 Nasal Cannula 2.00 02/04/18 01:32 97 NIV CPAP 2.00 02/04/18 00:31 98.1 65 17 126/58 (80) 95 Nasal Cannula 2.00 02/03/18 21:44 94 NIV CPAP 02/03/18 21:31 99.6 02/03/18 21:22 99.3 02/03/18 20:35 Nasal Cannula 2.00 02/03/18 20:25 100.2 73 22 136/65 (88) 94 Nasal Cannula 2.00 02/03/18 19:06 93 Nasal Cannula 2.00 02/03/18 17:24 93 Nasal Cannula 2.00 02/03/18 16:45 99.1 68 16 120/60 (80) 93 Nasal Cannula 2.00 02/03/18 12:54 98.7 72 16 122/61 (81) 96 Room Air 2.00 02/03/18 10:15 95 Nasal Cannula 2.00 02/03/18 10:10 97.2 63 18 134/66 (88) 95 Room Air 2.00 I & O 02/04/18 07:00 Intake Total 3540 ml Output Total 2150 ml Balance 1390 ml Laboratory Tests Test 02/04/18 06:34 Range/Units Hemoglobin 11.1 L 11.5-16.0 G/DL Hematocrit 31 L 35-52 % RLE--dressing intact. INtact DF and PF of toes and ankle sensation intact throughout s/p RTKA mobilize VALERIE LOPEZ MD Feb 04, 2018 07:58
[2018-02-04 08:00] VITALS: BP 111/64
[2018-02-04] MEDS: SERTRALINE 100 MG (ZOLOFT) TAB PO SCH (08:24)
[2018-02-04] MEDS: HYDROCHLOROTHIAZIDE 12.5 MG (HCTZ) CAP PO SCH (08:24)
[2018-02-04] MEDS: ASPIRIN 81 MG CHEW (CHILDREN'S ASA) PO SCH (08:24)
[2018-02-04] MEDS: lisINopril 20 MG (PRINIVIL) TABLET PO SCH (08:24)
[2018-02-04] MEDS: SENNA W/DOCUSATE (SENOKOT S) TABLET PO SCH ×2 (08:24→19:27)
[2018-02-04] MEDS: LORATADINE (CLARITIN) 10 MG TAB PO SCH (08:24)
[2018-02-04] MEDS ORDERED: ASPIRIN E.C. 81 MG (ECOTRIN) TAB PO SCH (09:00)
--- NOTE | 2018-02-04 10:31 | Physical Therapy Daily Note ---
PT Daily Note-Current Subjective Patient is up in recliner and agrees to PT. Pain Numeric Pain Scale: 5-Moderate Pain Location: Right Location Body Site: Knee Pain Description: Acute Mental Status Patient Orientation: Normal For Age Attachments: IV Transfers Functional [place] Measure 0=Not Assessed/NA 4=Minimal Assistance 1=Total Assistance 5=Supervision or Setup 2=Maximal Assistance 6=Modified [place] 3=Moderate Assistance 7=Complete IndependenceIRFPAI Quality Coding Scale 6 Independent with activity with or without an assistive device 5 Patient requires set up or clean up by helper. Patient completes activity by themselves 4 Supervision or touching assist (CGA). [place] provide cues , steadying assist 3 The helper provides less than half the effort to complete the activity 2 The helper provides more than half the effort to complete the activity 1 Dependent. The helper does all the effort to complete an activity 7 Patient refused to complete or attempt activity 9 The patient did not perform the activity before the current illness or injury 88 Not attempted due to Medical conditions or safety concerns Transfers (B, C, W/C) (FIM): 6 Scootin Sit to/from Stand: 6 Weight Bearing Right Lower Extremity: Right Weight Bearing/Tolerated Left Lower Extremity: Left Full Weight Bearing Gait Training Gait (FIM): 6 Distance (FIM): 3=150 ft Distance: 450' Gait Level of Assist: 6 Gait Assistive Device: FWW steady, reciprocal pattern, slightly antalgic Exercises Seated Therapy Exercises: Ankle pumps, Long arc quads, Hip flexion Seated Reps: 25 (2 sets) Assessment Patient tolerated treatment well and remained up in recliner with needs met. Patient is highly motivated with progress. PT Short Term Goals Short Term Goals Time Frame: Feb 10, 2018 Transfers (B,C,W/C) (FIM): 5 Gait (FIM): 5 Distance (FIM): 3=150 ft Gait Distance Comment: 200' Gait Level of Assist: 5 Gait Assistive Device: FWW PT Plan Treatment/Plan Treatment Plan: Continue Plan of Care Treatment Plan: Bed Mobility, Education, Functional Activity Santy, Functional Strength, Gait, Safety, Therapeutic Exercise, Transfers Treatment Duration: Feb 10, 2018 Frequency: 11 times per week Estimated Hrs Per Day: .25 hour per day (15-30') Patient and/or Family Agrees t: Yes Time/GCodes Time In: 930 Time Out: 955 Total Billed Treatment Time: 25 Total Billed Treatment 1 visit GT 14 min EX 11 min ANNI HESS PT Feb 04, 2018 10:31
[2018-02-04] MEDS: NS IV 1000 ML 1,000 ML IV SCH ×2 (10:39→22:34)
[2018-02-04 12:00] VITALS: BP 108/59
[2018-02-04] MEDS ORDERED: morphine INJ 4 MG/ML 1 ML (VIAL/SYRINGE) IVP NR (12:00)
--- NOTE | 2018-02-04 12:44 | Progress Note (SOAP) ---
Subjective Date Seen by a Provider: Feb 04, 2018 Time Seen by a Provider: 12:41 Subjective/Events-last exam Fwup HTN, ANNIE, GERD, S/P right TKR. C/O did not sleep well and morphine pump not working correctly overnight so is tearful both from lack of sleep and pain. Objective Exam Vital Signs Date Time Temp Pulse Resp B/P (MAP) Pulse Ox O2 Delivery O2 Flow Rate FiO2 02/04/18 12:01 98.4 02/04/18 10:54 98.4 02/04/18 08:03 Nasal Cannula 2.00 02/04/18 08:00 98.4 75 20 111/64 (80) 93 Nasal Cannula 2.00 02/04/18 07:56 96 Nasal Cannula 2.00 02/04/18 04:32 98.6 69 18 125/63 (83) 96 Nasal Cannula 2.00 02/04/18 01:32 97 NIV CPAP 2.00 02/04/18 00:31 98.1 65 17 126/58 (80) 95 Nasal Cannula 2.00 02/03/18 21:44 94 NIV CPAP 02/03/18 21:31 99.6 02/03/18 21:22 99.3 02/03/18 20:35 Nasal Cannula 2.00 02/03/18 20:25 100.2 73 22 136/65 (88) 94 Nasal Cannula 2.00 02/03/18 19:06 93 Nasal Cannula 2.00 02/03/18 17:24 93 Nasal Cannula 2.00 02/03/18 16:45 99.1 68 16 120/60 (80) 93 Nasal Cannula 2.00 02/03/18 12:54 98.7 72 16 122/61 (81) 96 Room Air 2.00 I & O 02/04/18 07:00 Intake Total 3540 ml Output Total 2150 ml Balance 1390 ml Capillary Refill : General Appearance: Moderate Distress (tearful) Respiratory: Lungs Clear Cardiovascular: Regular Rate, Rhythm Gastrointestinal: normal bowel sounds, non tender, soft Extremity: Non Tender, No Calf Tenderness, No Pedal Edema Neurologic/Psychiatric: Alert, Oriented x3 Skin: Warm/Dry (dressing in place and dry) Results Lab Laboratory Tests 02/04/18 06:34: Hemoglobin 11.1L, Hematocrit 31L Assessment/Plan Assessment/Plan Assess & Plan/Chief Complaint 1. Hypertension--restarted home lisinopril hct and monitor BP 2. ANNIE--resumed home CPAP per home settings 3. Hypothyroidism--resumed levothyroxine 4. Hyperlipidemia--resumed pravachol 5. GERD--resumed protonix 6. Right Knee Osteoarthritis/Pain--S/P right total knee arthroplasty--pain control, monitor BMs--instructed to take MOM tonight if no BM, lovenox for DVT prophylaxis, PT, IS, give Valium now x1 and add temazepam prn Clinical Quality Measures DVT/VTE Risk/Contraindication: Risk Factor Score Per Nursin RFS Level Per Nursing on Admit: 3=High JACQUE MOLINA DO Feb 04, 2018 12:44
[2018-02-04] MEDS ORDERED: MILK OF MAGNESIA 400 MG/5 ML 30 ML UDC PO PRN (12:45)
[2018-02-04] MEDS ORDERED: DIAZEPAM 5 MG (VALIUM) TABLET PO NR (12:45)
[2018-02-04] MEDS ORDERED: TEMAZEPAM 15 MG (RESTORIL) CAP PO PRN (12:45)
--- NOTE | 2018-02-04 13:51 | Occupational Therapy Eval ---
OT Evaluation-General/PLF Medical Diagnosis Admission Date Feb 03, 2018 at 06:05 Medical Diagnosis: R TKA Onset Date: Feb 03, 2018 Therapy Diagnosis Therapy Diagnosis: Weakness Height/Weight Height (Feet): 5 Height (Inches): 6.00 Weight (Pounds): 267 Weight (Ounces): 2.0 Precautions Precautions/Isolations: Standard Precautions Safety Interventions: None Weight Bear Status Weight Bearing Restriction: Weight Bearing/Tolerated Referral Physician: Daniel Referral Reason: Activity Tolerance, Self Care, Evaluation/Treatment, Strengthening/ROM Medical History Pertinent Medical History: Arthritis, HTN, Hypothroidism Additional Medical History Hysterectomy, Left total knee Current History Pt. lives with spouse. Had elective knee surgery. Reviewed History: Yes Social History Home: Single Level Current Living Status: Spouse Entry Into Home: Stairs With Railing Steps Into Home: 2 ADL-Prior Level of Function ADL PLOF Comments Pt. was independent with all basic ADL skills. 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 in bed in CPM. No pain reported at this time. Appearance Pt. eating breakfast. Agrees to work with OT. Mental Status/Objective Patient Orientation: Person, Place, Time, Situation Current Hand Dominance: Right Upper Extremity ROM WFL Upper Extremity Strength WFL ADL-Treatment Functional [place] Measure 0=Not Assessed/NA 4=Minimal Assistance 1=Total Assistance 5=Supervision or Setup 2=Maximal Assistance 6=Modified [place] 3=Moderate Assistance 7=Complete IndependenceIRFPAI Quality Coding Scale 6 Independent with activity with or without an assistive device 5 Patient requires set up or clean up by helper. Patient completes activity by themselves 4 Supervision or touching assist (CGA). [place] provide cues , steadying assist 3 The helper provides less than half the effort to complete the activity 2 The helper provides more than half the effort to complete the activity 1 Dependent. The helper does all the effort to complete an activity 7 Patient refused to complete or attempt activity 9 The patient did not perform the activity before the current illness or injury 88 Not attempted due to Medical conditions or safety concerns Eating (FIM): 7 Grooming (FIM): 5 (Pt. stood at sink with SBA with use of walker to brush hair and teeth.) Lower Body Dressing (FIM): 2 (Pt. unable to doff/don socks.) Toileting (FIM): 5 (SBA to toilet self.) Transfers (B, C, W/C) (FIM): 4 (Min assist for supine-sit. CGA sit-stand.) Toilet/Commode Transfer (FIM): 4 Other Treatments Pt. requires increased time to complete tasks. Pt. educated on OT goals and ADL equipment. Pt. does verbalize that she would like to be fully independent before discharge home. However, does state that her is home and very helpful. All needs met up in chair after evaluation. Education OT Patient Education: Correct positioning, Energy conservation, Modified ADL techniques, Progress toward Goal/Update tx plan, Purpose of tx/functional activities, Reviewed precautions, Rehab process, Transfer techniques Teaching Recipient: Patient Teaching Methods: Demonstration, Discussion Response to Teaching: Verbalize Understanding, Return Demonstration OT Short Term Goals Short Term Goals Transfers (B,C,W/C) (FIM): 5 1=Demonstrate adherence to instructed precautions during ADL tasks. 2=Patient will verbalize/demonstrate understanding of assistive devices/ modifications for ADL. 3=Patient will improve strength/tolerance for activity to enable patient to perform ADL's. OT Mcc Goals Mcc Goals Time Frame: Feb 11, 2018 Eating (FIM): 7 Grooming(FIM): 6 Bathing(FIM): 6 Upper Body Dressing(FIM): 6 Lower Body Dressing(FIM): 6 Toileting(FIM): 6 Transfers (B,C,W/C) (FIM): 6 Toilet/Commode Transfer(FIM): 6 Shower Transfer(FIM): 6 Additional Goals: 1-Demonstrate ADL Tasks, 2-Verbalize Understanding, 3- ImproveStrength/Santy 1=Demonstrate adherence to instructed precautions during ADL tasks. 2=Patient will verbalize/demonstrate understanding of assistive devices/ modifications for ADL. 3=Patient will improve strength/tolerance for activity to enable patient to perform ADL's. OT Education/Plan Problem List/Assessment Assessment: Decreased Activ Tolerance, Impaired I ADL's, Impaired Self-Care Skills Discharge Recommendations Plan/Recommendations: Continue POC Therapy D/C Recommendations: Home w/ Family Support Equpiment Recommendations-D/C: Hip Kit Treatment Plan/Plan of Care Treatment,Training & Education: Yes Patient would benefit from OT for education, treatment and training to promote independence in ADL's, mobility, safety and/or upper extremity function for ADL' s. Plan of Care: ADL Retraining, Functional Mobility Treatment Duration: Feb 11, 2018 Frequency: 5 times per week Estimated Hrs Per Day: .5 hour per day Agreement: Yes Rehab Potential: Good Time/GCodes Start Time: 08:30 Stop Time: 09:30 Total Time Billed (hr/min): 60 Billed Treatment Time 1, EVM x 15minutes, ADL x 45minutes KALI CARY OT Feb 04, 2018 13:51
--- NOTE | 2018-02-04 14:37 | Physical Therapy Daily Note ---
PT Daily Note-Current Subjective Patient agrees to PT. Pain Numeric Pain Scale: 7 Location: Right Location Body Site: Knee Pain Description: Acute Mental Status Patient Orientation: Normal For Age Attachments: Polar Pack, IV Transfers Functional [place] Measure 0=Not Assessed/NA 4=Minimal Assistance 1=Total Assistance 5=Supervision or Setup 2=Maximal Assistance 6=Modified [place] 3=Moderate Assistance 7=Complete IndependenceIRFPAI Quality Coding Scale 6 Independent with activity with or without an assistive device 5 Patient requires set up or clean up by helper. Patient completes activity by themselves 4 Supervision or touching assist (CGA). [place] provide cues , steadying assist 3 The helper provides less than half the effort to complete the activity 2 The helper provides more than half the effort to complete the activity 1 Dependent. The helper does all the effort to complete an activity 7 Patient refused to complete or attempt activity 9 The patient did not perform the activity before the current illness or injury 88 Not attempted due to Medical conditions or safety concerns Transfers (B, C, W/C) (FIM): 6 Scootin Rollin Supine to/from Sit: 6 Sit to/from Stand: 6 Weight Bearing Right Lower Extremity: Right Weight Bearing/Tolerated Left Lower Extremity: Left Full Weight Bearing Gait Training Gait (FIM): 6 Distance (FIM): 3=150 ft Distance: 300' Gait Level of Assist: 6 Gait Assistive Device: FWW steady gait sequence Exercises Supine Ex: Ankle pumps, Quad Set, Heel Slides, Straight leg raise Supine Reps: 15 Seated Therapy Exercises: Long arc quads Seated Reps: 15 Assessment Patient tolerated treatment well and is on CPM 0--65 degrees with polar pack in place. Patient progressing with treatment plan. PT Short Term Goals Short Term Goals Time Frame: Feb 10, 2018 Transfers (B,C,W/C) (FIM): 5 Gait (FIM): 5 Distance (FIM): 3=150 ft Gait Distance Comment: 200' Gait Level of Assist: 5 Gait Assistive Device: FWW PT Plan Treatment/Plan Treatment Plan: Continue Plan of Care Treatment Plan: Bed Mobility, Education, Functional Activity Santy, Functional Strength, Gait, Safety, Therapeutic Exercise, Transfers Treatment Duration: Feb 10, 2018 Frequency: 11 times per week Estimated Hrs Per Day: .25 hour per day (15-30') Patient and/or Family Agrees t: Yes Time/GCodes Time In: 1341 Time Out: 1415 Total Billed Treatment Time: 34 Total Billed Treatment 1 visit EX 19 min GT 15 min ANNI HESS PT Feb 04, 2018 14:37
[2018-02-04 16:00] VITALS: BP 116/57
[2018-02-04] MEDS: morphine PCA 30 MG/30 ML VIAL IV PRN (16:19)
[2018-02-04] MEDS: ENOXAPARIN 40 MG/0.4 ML (LOVENOX) SYR SC SCH (18:17)
[2018-02-04] MEDS: SIMvastatin 40 MG (ZOCOR) TAB PO SCH (19:27)
[2018-02-04] MEDS: TOLTERODINE LA 2 MG (DETROL LA) CAP PO SCH (19:27)
[2018-02-04] MEDS: PANTOPRAZOLE 40 MG (PROTONIX) TAB PO SCH (19:27)
[2018-02-04 20:05] VITALS: BP 136/67
[2018-02-04] MEDS: ACETAMINOPHEN 325 MG TABLET PO PRN (20:31)
[2018-02-04] MEDS ORDERED: NS IV 1000 ML 1,000 ML ONE (22:30)
[2018-02-05 00:25] VITALS: BP 130/62
[2018-02-05 04:50] VITALS: BP 134/68
[2018-02-05] MEDS: VITAMIN D3 5,000 UNITS (CHOLECALCIFEROL ) CAPSULE PO SCH (05:47)
[2018-02-05] MEDS: MULTIVIT W/MINERALS TAB (THERAGRAN M) PO SCH (05:47)
[2018-02-05] MEDS: LEVOTHYROXINE 25 MCG (LEVOTHROID) TAB PO SCH (05:47)
[2018-02-05 06:16] LABS: HEMOGLOBIN 10.3 G/DL (11.5-16.0)
--- NOTE | 2018-02-05 07:07 | Progress Note-Standard ---
Standard Progress Note Progress Notes/Assess & Plan Date Seen by a Provider: Feb 05, 2018 Time Seen by a Provider: 07:06 Progress/Assessment & Plan NO complaints radiographs--HW well positioned without fracture RLE--intact DF and PF of toes and ankle. sensation intact. 2 plus DP pulse with brisk cap refill s/p RTKA mobilize as able Final Diagnosis Feeling better Vital Signs Date Time Temp Pulse Resp B/P (MAP) Pulse Ox O2 Delivery O2 Flow Rate FiO2 02/05/18 06:46 98 NIV CPAP 02/05/18 04:50 98.0 88 17 134/68 (90) 95 Room Air 02/05/18 02:48 97 NIV CPAP 02/05/18 00:25 98.3 80 18 130/62 (84) 93 Room Air 02/04/18 22:33 85 Room Air 02/04/18 21:30 98.9 02/04/18 20:31 101.4 02/04/18 20:05 101.6 77 16 136/67 (90) 94 Room Air 02/04/18 19:35 93 Room Air 02/04/18 19:25 NIV CPAP 02/04/18 16:50 100.0 02/04/18 16:19 16 02/04/18 16:00 100.0 68 16 116/57 (76) 92 Room Air 02/04/18 15:02 96 Room Air 02/04/18 12:35 98.4 02/04/18 12:35 98.4 02/04/18 12:01 98.4 02/04/18 12:00 100.0 74 20 108/59 (75) 96 Nasal Cannula 2.00 02/04/18 08:03 Nasal Cannula 2.00 02/04/18 08:00 98.4 75 20 111/64 (80) 93 Nasal Cannula 2.00 02/04/18 07:56 96 Nasal Cannula 2.00 I & O 02/05/18 07:00 Intake Total 2910 ml Output Total 1900 ml Balance 1010 ml Laboratory Tests Test 02/05/18 05:55 Range/Units Hemoglobin 10.3 L 11.5-16.0 G/DL Hematocrit 31 L 35-52 % RLE--incision clean and dry. Fracture blisters laterally No calf tenderness. Neg Juan's. Neg SLR S/P RTKA PT/OT likely DC tomorrow VALERIE LOPEZ MD Feb 05, 2018 07:07
[2018-02-05] MEDS ORDERED: morphine INJ 4 MG/ML 1 ML (VIAL/SYRINGE) IVP PRN (07:15)
[2018-02-05 08:00] VITALS: BP 160/72
[2018-02-05] MEDS: SERTRALINE 100 MG (ZOLOFT) TAB PO SCH (08:24)
[2018-02-05] MEDS: SENNA W/DOCUSATE (SENOKOT S) TABLET PO SCH ×2 (08:24→20:52)
[2018-02-05] MEDS: HYDROCHLOROTHIAZIDE 12.5 MG (HCTZ) CAP PO SCH (08:24)
[2018-02-05] MEDS: ASPIRIN 81 MG CHEW (CHILDREN'S ASA) PO SCH (08:24)
[2018-02-05] MEDS: LORATADINE (CLARITIN) 10 MG TAB PO SCH (08:24)
[2018-02-05] MEDS: ENOXAPARIN 40 MG/0.4 ML (LOVENOX) SYR SC SCH ×2 (08:25→20:52)
[2018-02-05] MEDS: oxyCODONE/APAP 5/325MG (PERCOCET 5) TABLET PO PRN ×2 (08:25→12:07)
[2018-02-05] MEDS: lisINopril 20 MG (PRINIVIL) TABLET PO SCH (08:28)
--- NOTE | 2018-02-05 09:46 | Physical Therapy Daily Note ---
PT Daily Note-Current Subjective Patient agrees to PT. Pain Numeric Pain Scale: 5-Moderate Pain Location: Right Location Body Site: Knee Pain Description: Acute Appearance noted surgical blisters right knee Mental Status Patient Orientation: Normal For Age Transfers Functional [place] Measure 0=Not Assessed/NA 4=Minimal Assistance 1=Total Assistance 5=Supervision or Setup 2=Maximal Assistance 6=Modified [place] 3=Moderate Assistance 7=Complete IndependenceIRFPAI Quality Coding Scale 6 Independent with activity with or without an assistive device 5 Patient requires set up or clean up by helper. Patient completes activity by themselves 4 Supervision or touching assist (CGA). [place] provide cues , steadying assist 3 The helper provides less than half the effort to complete the activity 2 The helper provides more than half the effort to complete the activity 1 Dependent. The helper does all the effort to complete an activity 7 Patient refused to complete or attempt activity 9 The patient did not perform the activity before the current illness or injury 88 Not attempted due to Medical conditions or safety concerns Transfers (B, C, W/C) (FIM): 6 Scootin Rollin Supine to/from Sit: 6 Sit to/from Stand: 6 Bed to/from Chair: 6 Weight Bearing Right Lower Extremity: Right Weight Bearing/Tolerated Left Lower Extremity: Left Full Weight Bearing Gait Training Gait (FIM): 6 Distance (FIM): 3=150 ft Distance: 500' Gait Level of Assist: 6 Gait Assistive Device: FWW reciprocal pattern/slightly antalgic Stair Training Stair Training: Handrails/: 1 handrail, uses walker Stairs (FIM): 2 #of Steps: 4 Stairs: Pattern: Step to Level of Assist: 5 Exercises Supine Ex: Ankle pumps, Quad Set, Heel Slides, Straight leg raise Supine Reps: 15 Seated Therapy Exercises: Long arc quads Seated Reps: 15 Assessment Patient tolerated treatment well and is instructed to be up ad hector in room and hallway. Progressing with treatment plan. PT Short Term Goals Short Term Goals Time Frame: Feb 10, 2018 Transfers (B,C,W/C) (FIM): 5 Gait (FIM): 5 Distance (FIM): 3=150 ft Gait Distance Comment: 200' Gait Level of Assist: 5 Gait Assistive Device: FWW PT Plan Treatment/Plan Treatment Plan: Continue Plan of Care Treatment Plan: Bed Mobility, Education, Functional Activity Santy, Functional Strength, Gait, Safety, Therapeutic Exercise, Transfers Treatment Duration: Feb 10, 2018 Frequency: 11 times per week Estimated Hrs Per Day: .25 hour per day (15-30') Patient and/or Family Agrees t: Yes Time/GCodes Time In: 843 Time Out: 910 Total Billed Treatment Time: 27 Total Billed Treatment 1 visit EX 15 min GT 12 min ANNI HESS PT Feb 05, 2018 09:45
--- NOTE | 2018-02-05 10:43 | Progress Note (SOAP) ---
Subjective Date Seen by a Provider: Feb 05, 2018 Time Seen by a Provider: 10:41 Subjective/Events-last exam Fwup HTN, ANNIE, GERD, S/P right TKR. Slept better last night. Still no BM. Has blisters to right lower leg. Objective Exam Vital Signs Date Time Temp Pulse Resp B/P (MAP) Pulse Ox O2 Delivery O2 Flow Rate FiO2 02/05/18 08:00 98.9 75 20 160/72 (101) 97 Room Air 02/05/18 06:46 98 NIV CPAP 02/05/18 04:50 98.0 88 17 134/68 (90) 95 Room Air 02/05/18 02:48 97 NIV CPAP 02/05/18 00:25 98.3 80 18 130/62 (84) 93 Room Air 02/04/18 22:33 85 Room Air 02/04/18 21:30 98.9 02/04/18 20:31 101.4 02/04/18 20:05 101.6 77 16 136/67 (90) 94 Room Air 02/04/18 19:35 93 Room Air 02/04/18 19:25 NIV CPAP 02/04/18 16:50 100.0 02/04/18 16:19 16 02/04/18 16:00 100.0 68 16 116/57 (76) 92 Room Air 02/04/18 15:02 96 Room Air 02/04/18 12:35 98.4 02/04/18 12:35 98.4 02/04/18 12:01 98.4 02/04/18 12:00 100.0 74 20 108/59 (75) 96 Nasal Cannula 2.00 I & O 02/05/18 07:00 Intake Total 2910 ml Output Total 1900 ml Balance 1010 ml Capillary Refill : General Appearance: No Apparent Distress Neck: Supple Respiratory: Lungs Clear Cardiovascular: Regular Rate, Rhythm Gastrointestinal: normal bowel sounds, non tender, soft Extremity: Non Tender, No Calf Tenderness, Pedal Edema (right trace) Neurologic/Psychiatric: Alert, Oriented x3 Skin: Other (blisters to right lateral knee and medial mon) Results Lab Laboratory Tests 02/05/18 05:55: Hemoglobin 10.3L, Hematocrit 31L Assessment/Plan Assessment/Plan Assess & Plan/Chief Complaint 1. Hypertension--restarted home lisinopril hct and monitor BP 2. ANNIE--resumed home CPAP per home settings 3. Hypothyroidism--resumed levothyroxine 4. Hyperlipidemia--resumed pravachol 5. GERD--resumed protonix 6. Right Knee Osteoarthritis/Pain--S/P right total knee arthroplasty--pain control, monitor BMs--instructed to take MOM now, lovenox for DVT prophylaxis, PT, IS, plan is DC tomorrow per ortho Clinical Quality Measures DVT/VTE Risk/Contraindication: Risk Factor Score Per Nursin RFS Level Per Nursing on Admit: 3=High JACQUE MOLINA DO Feb 05, 2018 10:43
[2018-02-05 12:00] VITALS: BP 145/68
--- NOTE | 2018-02-05 12:51 | Occupational Ther Daily Note ---
OT Current Status-Daily Note Subjective Pt seen in room, up in bed, agreeable to OT. Reported blisters on R lower leg are painful and asked nurses for pain meds. Appearance Alert, cooperative Mental Status/Objective Functional [place] Measure 0=Not Assessed/NA 4=Minimal Assistance 1=Total Assistance 5=Supervision or Setup 2=Maximal Assistance 6=Modified [place] 3=Moderate Assistance 7=Complete [place] ADL-Treatment Pt walked 500' with PT this morning and has been made up ad hector inroom. She reported that she has showered and toileted without difficulty and doesn't have any concerns about managing her ADLs after discharge. OT reviewed modified ADL techniques for dressing. Her will be home to help her if needed and she has experienced this before with her L TKA. All questions answered to her satisfaction. Goals met to her satisfaction. DC OT. Education OT Patient Education: Modified ADL techniques, Purpose of tx/functional activities Teaching Recipient: Patient Teaching Methods: Discussion Response to Teaching: Verbalize Understanding OT Short Term Goals Short Term Goals Transfers (B,C,W/C) (FIM): 5 1=Demonstrate adherence to instructed precautions during ADL tasks. 2=Patient will verbalize/demonstrate understanding of assistive devices/ modifications for ADL. 3=Patient will improve strength/tolerance for activity to enable patient to perform ADL's. OT [facility] Goals Air Pollution Compliance Inspector Goals Time Frame: Feb 11, 2018 Eating (FIM): 7 Grooming(FIM): 6 Bathing(FIM): 6 Upper Body Dressing(FIM): 6 Lower Body Dressing(FIM): 6 Toileting(FIM): 6 Transfers (B,C,W/C) (FIM): 6 Toilet/Commode Transfer(FIM): 6 Shower Transfer(FIM): 6 Additional Goals: 1-Demonstrate ADL Tasks, 2-Verbalize Understanding, 3- ImproveStrength/Santy 1=Demonstrate adherence to instructed precautions during ADL tasks. 2=Patient will verbalize/demonstrate understanding of assistive devices/ modifications for ADL. 3=Patient will improve strength/tolerance for activity to enable patient to perform ADL's. OT Education/Plan Discharge Recommendations Plan/Recommendations: Discharge/Goals Met Treatment Plan/Plan of Care Patient would benefit from OT for education, treatment and training to promote independence in ADL's, mobility, safety and/or upper extremity function for ADL' s. Plan of Care: ADL Retraining, Functional Mobility Treatment Duration: Feb 11, 2018 Frequency: 5 times per week Estimated Hrs Per Day: .5 hour per day Agreement: Yes Rehab Potential: Good Time/GCodes Start Time: 11:45 Stop Time: 12:00 Total Time Billed (hr/min): 15 Billed Treatment Time visit, 15 minutes ADL DANIEL FRANKLIN OT Feb 05, 2018 12:51
--- NOTE | 2018-02-05 14:23 | Physical Therapy Daily Note ---
PT Daily Note-Current Subjective Patient agrees to PT. Pain Numeric Pain Scale: 5-Moderate Pain Location: Right Location Body Site: Knee Pain Description: Acute Mental Status Patient Orientation: Normal For Age Transfers Functional [place] Measure 0=Not Assessed/NA 4=Minimal Assistance 1=Total Assistance 5=Supervision or Setup 2=Maximal Assistance 6=Modified [place] 3=Moderate Assistance 7=Complete IndependenceIRFPAI Quality Coding Scale 6 Independent with activity with or without an assistive device 5 Patient requires set up or clean up by helper. Patient completes activity by themselves 4 Supervision or touching assist (CGA). [place] provide cues , steadying assist 3 The helper provides less than half the effort to complete the activity 2 The helper provides more than half the effort to complete the activity 1 Dependent. The helper does all the effort to complete an activity 7 Patient refused to complete or attempt activity 9 The patient did not perform the activity before the current illness or injury 88 Not attempted due to Medical conditions or safety concerns Transfers (B, C, W/C) (FIM): 6 Scootin Rollin Supine to/from Sit: 6 Sit to/from Stand: 6 Weight Bearing Right Lower Extremity: Right Weight Bearing/Tolerated Left Lower Extremity: Left Full Weight Bearing Gait Training Gait (FIM): 6 Distance (FIM): 3=150 ft Distance: 500' Gait Level of Assist: 6 Gait Assistive Device: FWW reciprocal pattern/antalgic Exercises Supine Ex: Ankle pumps, Quad Set, Heel Slides, Straight leg raise Supine Reps: 25 Seated Therapy Exercises: Ankle pumps, Long arc quads Seated Reps: 25 Assessment Continues to progress with treatment plan. Will dismiss to home tomorrow. PT Short Term Goals Short Term Goals Time Frame: Feb 10, 2018 Transfers (B,C,W/C) (FIM): 5 Gait (FIM): 5 Distance (FIM): 3=150 ft Gait Distance Comment: 200' Gait Level of Assist: 5 Gait Assistive Device: FWW PT Plan Treatment/Plan Treatment Plan: Continue Plan of Care Treatment Plan: Bed Mobility, Education, Functional Activity Santy, Functional Strength, Gait, Safety, Therapeutic Exercise, Transfers Treatment Duration: Feb 10, 2018 Frequency: 11 times per week Estimated Hrs Per Day: .25 hour per day (15-30') Patient and/or Family Agrees t: Yes Time/GCodes Time In: 1257 Time Out: 1320 Total Billed Treatment Time: 23 Total Billed Treatment 1 visit EX 15 min GT 8 min ANNI HESS PT Feb 05, 2018 14:23
[2018-02-05 16:15] VITALS: BP 128/60
[2018-02-05] MEDS: ACETAMINOPHEN 325 MG TABLET PO PRN (16:22)
[2018-02-05 20:10] VITALS: BP 144/71
[2018-02-05] MEDS: PANTOPRAZOLE 40 MG (PROTONIX) TAB PO SCH (20:52)
[2018-02-05] MEDS: SIMvastatin 40 MG (ZOCOR) TAB PO SCH (20:52)
[2018-02-05] MEDS: TOLTERODINE LA 2 MG (DETROL LA) CAP PO SCH (20:52)
[2018-02-06] VITALS: BP 147/73
[2018-02-06 04:00] VITALS: BP 145/82
[2018-02-06] MEDS: LEVOTHYROXINE 25 MCG (LEVOTHROID) TAB PO SCH (05:51)
[2018-02-06] MEDS: VITAMIN D3 5,000 UNITS (CHOLECALCIFEROL ) CAPSULE PO SCH (05:51)
[2018-02-06] MEDS: MULTIVIT W/MINERALS TAB (THERAGRAN M) PO SCH (05:51)
[2018-02-06 07:12] LABS: HEMOGLOBIN 10.6 G/DL (11.5-16.0)
[2018-02-06 08:00] VITALS: BP 163/84
[2018-02-06] MEDS: LORATADINE (CLARITIN) 10 MG TAB PO SCH (08:25)
[2018-02-06] MEDS: ASPIRIN 81 MG CHEW (CHILDREN'S ASA) PO SCH (08:25)
[2018-02-06] MEDS: ENOXAPARIN 40 MG/0.4 ML (LOVENOX) SYR SC SCH (08:25)
[2018-02-06] MEDS: HYDROCHLOROTHIAZIDE 12.5 MG (HCTZ) CAP PO SCH (08:25)
[2018-02-06] MEDS: lisINopril 20 MG (PRINIVIL) TABLET PO SCH (08:26)
[2018-02-06] MEDS: SERTRALINE 100 MG (ZOLOFT) TAB PO SCH (08:26)
[2018-02-06] MEDS: SENNA W/DOCUSATE (SENOKOT S) TABLET PO SCH (08:32)
--- NOTE | 2018-02-06 09:00 | Progress Note-Standard ---
Standard Progress Note Progress Notes/Assess & Plan Date Seen by a Provider: Feb 06, 2018 Time Seen by a Provider: 08:59 Progress/Assessment & Plan NO complaints radiographs--HW well positioned without fracture RLE--intact DF and PF of toes and ankle. sensation intact. 2 plus DP pulse with brisk cap refill s/p RTKA mobilize as able Final Diagnosis no complaints Vital Signs Date Time Temp Pulse Resp B/P (MAP) Pulse Ox O2 Delivery O2 Flow Rate FiO2 02/06/18 04:00 99.8 86 20 145/82 (103) 95 Room Air 02/06/18 00:00 100.3 84 20 147/73 (97) 95 Room Air 02/05/18 20:10 100.2 74 20 144/71 (95) 97 Room Air 02/05/18 20:00 Room Air 02/05/18 17:08 101.2 02/05/18 17:00 99.7 02/05/18 16:15 100.0 77 16 128/60 (82) 97 Room Air 02/05/18 12:00 97.4 78 20 145/68 (93) 98 Nasal Cannula 2.00 I & O 02/06/18 07:00 Intake Total 3220 ml Output Total 5200 ml Balance -1980 ml Laboratory Tests Test 02/06/18 07:00 Range/Units Hemoglobin 10.6 L 11.5-16.0 G/DL Hematocrit 30 L 35-52 % RLE-no calf tenderness., Ambulating with walker s/p RTKA DC home Home PT VALERIE LOPEZ MD Feb 06, 2018 09:00
--- NOTE | 2018-02-06 09:24 | Physical Therapy Daily Note ---
PT Daily Note-Current Subjective Pt up in chair, agreeable initially. When ambulating, Pt requests to return to the bathroom and "sit for awhile". Pt denied questions/concerns with regards to discharge home from PT standpoint. Mental Status Patient Orientation: Person, Place, Time, Situation Transfers Functional [place] Measure 0=Not Assessed/NA 4=Minimal Assistance 1=Total Assistance 5=Supervision or Setup 2=Maximal Assistance 6=Modified [place] 3=Moderate Assistance 7=Complete IndependenceIRFPAI Quality Coding Scale 6 Independent with activity with or without an assistive device 5 Patient requires set up or clean up by helper. Patient completes activity by themselves 4 Supervision or touching assist (CGA). [place] provide cues , steadying assist 3 The helper provides less than half the effort to complete the activity 2 The helper provides more than half the effort to complete the activity 1 Dependent. The helper does all the effort to complete an activity 7 Patient refused to complete or attempt activity 9 The patient did not perform the activity before the current illness or injury 88 Not attempted due to Medical conditions or safety concerns Weight Bearing Right Lower Extremity: Right Weight Bearing/Tolerated Left Lower Extremity: Left Full Weight Bearing Gait Training Gait (FIM): 6 Distance (FIM): 3=150 ft Distance: 250 Gait Level of Assist: 6 Gait Persons Needed: 0 Gait Assistive Device: FWW Pt ambulates with moderate pace, (R) knee in slight flexion with stance phase. VCS for TKE, heel-toe gait. Treatments Gait training. Session terminated due to need to use BR again. Reviewed HEP to prepare for discharge. Pt in BR with pull cord in reach, nursing notified of position. Assessment Current Status: Excellent Progress Pt tolerated well. Functional mobility and ROM progressing well s/p (R) TKR PT Short Term Goals Short Term Goals Time Frame: Feb 10, 2018 Transfers (B,C,W/C) (FIM): 5 Gait (FIM): 5 Distance (FIM): 3=150 ft Gait Distance Comment: 200' Gait Level of Assist: 5 Gait Assistive Device: FWW PT Plan Problem List Problem List: Activity Tolerance, Functional Strength, Balance, Gait, Transfer , Bed Mobility, ROM Treatment/Plan Treatment Plan: Continue Plan of Care Treatment Plan: Bed Mobility, Education, Functional Activity Santy, Functional Strength, Gait, Safety, Therapeutic Exercise, Transfers Treatment Duration: Feb 10, 2018 Frequency: 11 times per week Estimated Hrs Per Day: .25 hour per day (15-30') Patient and/or Family Agrees t: Yes Safety Risks/Education Patient Education: Gait Training Teaching Recipient: Patient Teaching Methods: Discussion Response to Teaching: Verbalize Understanding Discharge Recommendations Therapy D/C Recommendations: Physical Therapy Home Care Barriers to Progress none Time/GCodes Time In: 0841 Time Out: 0854 Total Billed Treatment Time: 13 Total Billed Treatment 1, GT x 13' G Codes Necessary: No JANELLE LEMOS DPAnisa Feb 06, 2018 09:24
[2018-02-06 10:10] VITALS: BP 163/84
--- NOTE | 2018-02-06 13:42 | DISCHARGE SUMMARY ---
DATE OF SERVICE: DIAGNOSES: 1. Right knee primary osteoarthritis. 2. Hypothyroidism. 3. Reflux. 4. Hypertension. 5. Hypercholesterolemia. 6. Sleep apnea. PROCEDURE: Right total knee arthroplasty. SUMMARY: The patient is a 62-year-old female who underwent a right total knee arthroplasty on the day of admission. Postoperatively, she did very well. At the time of discharge, her wound was clean and dry. She had no calf tenderness. Negative Homans sign. She was tolerating diet well and tolerating her pain with oral pain medication. CONDITION ON DISCHARGE: Good. DISCHARGE DIET: Regular. FOLLOWUP: In three weeks. ACTIVITY: Weightbearing as tolerated with walker. DISCHARGE MEDICATIONS: Home medications, Percocet and aspirin. Job ID: [id number] DocumentID: [id number] Dictated Date: 02/06/2018 08:59:10 Care Transitions Nurse Date: 02/06/2018 13:40:51 Dictated By: VALERIE LOPEZ MD
== END 2018-02-06 10:10 | disposition home health service (06) | DRG 470 ==
LOC: 4TH 06:05 → SURG 06:06 → 4TH 10:10
PROVIDERS: ADMIT Orthopaedic Surgery; ATTEND Orthopaedic Surgery
PROC: 0SRC0J9 Replacement of Right Knee Joint with Synthetic Substitute, Cemented, Open Approach (ICD-10-PCS; principal; 2018-02-03 07:29)
DX: M17.11 Unilateral primary osteoarthritis, right knee (principal); I10 Essential (primary) hypertension; E03.9 Hypothyroidism, unspecified; E78.00 Pure hypercholesterolemia, unspecified; E78.5 Hyperlipidemia, unspecified; K21.9 Gastro-esophageal reflux disease without esophagitis; N32.81 Overactive bladder; G47.33 Obstructive sleep apnea (adult) (pediatric); H93.19 Tinnitus, unspecified ear; H91.90 Unspecified hearing loss, unspecified ear; F41.9 Anxiety disorder, unspecified; Z87.442 Personal history of urinary calculi; Z87.440 Personal history of urinary (tract) infections
CPT/HCPCS: 36415; 73560; 85014; 85018; 86850; 86900; 86901; 94664; 94760

== ENCOUNTER 2018-03-26 11:30 | Outpatient (RCR) | payer BC ==
[~2018-03-26 11:30] MED LIST changes: +OXYC1TAB87 PO
== END 2018-03-26 12:53 | disposition home or self-care (01) ==
PROVIDERS: ATTEND Orthopaedic Surgery
DX: Z47.1 Aftercare following joint replacement surgery (principal); Z96.651 Presence of right artificial knee joint

== ENCOUNTER 2018-07-01 13:00 | Outpatient (RCR) | payer BC | END 2018-08-30 | disposition home or self-care (01) | PROVIDERS: ATTEND Family Medicine | DX: M54.16 Radiculopathy, lumbar region (principal); M51.36 Other intervertebral disc degeneration, lumbar region ==

== ENCOUNTER → 2018-07-29 | Outpatient (CLI) | payer BC ==
--- NOTE | 2018-07-29 20:26 | Diagnostic Imaging Report ---
INDICATION: Routine screening. Comparison is made with prior mammogram from 01/30/2012. 2-D and 3-D bilateral screening mammography was performed with Computer-Aided Detection (CAD) system. FINDINGS: Scattered fibroglandular densities are identified bilaterally. There are scattered nodular densities throughout both breasts. These appear to be fairly well circumscribed and likely benign. A density in the medial aspect of the left breast on the CC view at [id number] depth is noted and indeterminate. Additional views of this area are recommended. No definite correlate on the MLO view is seen. There are no suspicious calcifications. Axillae are unremarkable. IMPRESSION: Left breast density. Additional views are recommended. ACR BI-RADS Category 0: Incomplete. (Needs additional imaging evaluation). Result letter will be mailed to the patient. Note: At least 10% of breast cancer is not imaged by mammography. Dictated by: Dictated on workstation # [id number]
== END ==
LOC: RAD 10:52
PROVIDERS: ATTEND Family Medicine
DX: Z12.31 Encounter for screening mammogram for malignant neoplasm of breast (principal); R92.8 Other abnormal and inconclusive findings on diagnostic imaging of breast
CPT/HCPCS: 77067

== ENCOUNTER → 2018-08-05 | Outpatient (CLI) | payer BC ==
--- NOTE | 2018-08-05 19:07 | Diagnostic Imaging Report ---
INDICATION: Left breast density. Patient presents for additional views. COMPARISON: Correlation is made with screening mammograms from 07/29/2018 and 01/30/2012. TECHNIQUE: Unilateral left 2D and 3D diagnostic mammography was performed including spot compression CC, rolled CC, and 90 degree lateral views. The current study was also evaluated with a Computer Aided Detection (CAD) system. FINDINGS: Additional views fail to demonstrate a discrete mass. The area of density in the medial left breast most likely represents superimposed tissue. No suspicious calcifications are seen. IMPRESSION: Additional views fail to demonstrate a discrete mass. Patient may return to routine annual screening mammography. ACR BI-RADS Category 2: Benign findings. Result letter will be mailed to the patient. Note: At least 10% of breast cancer is not imaged by mammography. Dictated by: Dictated on workstation # [id number]
== END ==
LOC: RAD 14:10
PROVIDERS: ATTEND Family Medicine
DX: R92.2 Inconclusive mammogram (principal)

== ENCOUNTER → 2019-06-24 | Outpatient (CLI) | payer BC ==
[~2019-06-24] MED LIST changes: +LISI1TAB25 PO; -LISI1TAB8 PO; +SIMV40TA25 PO; -SIMV40TA4 PO
--- NOTE | 2019-06-24 13:10 | Diagnostic Imaging Report ---
INDICATION: Cough. TIME OF EXAMINATION: 12:04 PM. COMPARISON: Prior chest from 01/28/2018. FINDINGS: The heart size is normal. Linear scarring in the left base is noted. The lungs are clear. The pulmonary vascularity is normal. No infiltrate, effusion, or pneumothorax is seen. IMPRESSION: No acute cardiopulmonary process is detected. Dictated by: Dictated on workstation # [id number]
== END ==
LOC: RAD 11:24
PROVIDERS: ATTEND Family Medicine
DX: R05 Cough (principal)
CPT/HCPCS: 71046

== ENCOUNTER → 2019-07-29 | Outpatient (CLI) | payer BC ==
--- NOTE | 2019-07-29 13:39 | Diagnostic Imaging Report ---
CT CHEST WO TECHNIQUE: Multiple contiguous axial images were obtained through the chest without the use of intravenous contrast. All CT scans use one or more of the following dose optimizing techniques: Automated exposure control, MA and/or KvP adjustment based on a patient size and exam type, or iterative reconstruction. INDICATION: Chronic cough. COMPARISON: CT chest from 04/27/2009. FINDINGS: Lungs and airway: No endoluminal nodule within the trachea. There is a mixture of ground-glass opacities and centrilobular ground-glass nodules scattered in the bilateral upper lobes. A mixture of atelectasis and centrilobular micronodules are present in the lingula, middle lobe, and left lower lobe. No cavitary lung lesions. Pleura: No pleural effusion or pneumothorax. Heart and mediastinum: Thyroid is normal. No supraclavicular or axillary lymphadenopathy. No mediastinal, discrete hilar, or juxtaphrenic lymphadenopathy. No pericardial effusion. Normal-caliber thoracic aorta. Distal esophagus is normal in appearance. Upper abdomen: Diffuse hepatic steatosis. Cholecystectomy. Musculoskeletal: No worrisome focal osseous lesions. IMPRESSION: 1. 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 Other atypical infection such as pseudomonas can also give this appearance. Dictated by: Dictated on workstation # [id number]
== END ==
LOC: RAD 09:39
PROVIDERS: ATTEND Family Medicine
DX: J98.4 Other disorders of lung (principal); J98.11 Atelectasis; A31.9 Mycobacterial infection, unspecified; R91.8 Other nonspecific abnormal finding of lung field
CPT/HCPCS: 71250

== ENCOUNTER → 2020-01-13 | Outpatient (CLI) | payer BC ==
[~2020-01-13] MED LIST changes: +CHOL500050 PO; +CYAN1TAB55 PO; +FLUT15.845 NS; +LEVO25TA80 PO; +LOSA1TAB23 PO; +OMEP40CA27 PO
--- NOTE | 2020-01-13 16:13 | Diagnostic Imaging Report ---
INDICATION: Routine screening. COMPARISON: Prior mammogram of 07/29/2018. EXAMINATION: 2D and 3D bilateral screening mammography was performed with CAD. The current study was also evaluated with a Computer Aided Detection (CAD) system. FINDINGS: Both breasts are heterogeneously dense, limiting the sensitivity of mammography. Nodular densities in the outer left breast appear stable. No spiculated mass or malignant appearing microcalcifications are seen. Axillae are unremarkable. IMPRESSION: No mammographic features suspicious for malignancy are identified. ACR BI-RADS Category 2: Benign findings. Result letter will be mailed to the patient. Note: At least 10% of breast cancer is not imaged by mammography. Dictated on workstation # [id number]
== END ==
LOC: RAD 11:15
PROVIDERS: ATTEND Family Medicine
DX: Z12.31 Encounter for screening mammogram for malignant neoplasm of breast (principal)
CPT/HCPCS: 77063; 77067

== ENCOUNTER 2020-01-18 05:28 | Outpatient (RCR) | payer BC ==
[~2020-01-18] VITALS: Ht 167 cm; Wt 111.8 kg
== END 2020-01-18 14:31 | disposition home or self-care (01) ==
LOC: PREOP 05:28
PROVIDERS: ATTEND Internal Medicine
DX: Z01.812 Encounter for preprocedural laboratory examination (principal); Z20.828 Contact with and (suspected) exposure to other viral communicable diseases
CPT/HCPCS: 87635

== ENCOUNTER 2020-01-20 07:54 | Day surgery (SDC) | payer BC ==
--- NOTE | 2020-01-13 18:57 | HISTORY AND PHYSICAL ---
DATE OF SERVICE: PANENDOSCOPY SUMMARY HISTORY OF PRESENT ILLNESS: The patient is a 64-year-old white female referred by Dr. Ibrahim for colonoscopy and EGD evaluation. The patient reports increased issues with epigastric discomfort that has gotten a little bit better on b.i.d. proton pump inhibitor therapy in the form of omeprazole 40 mg twice a day. She reports for probably over a year, intermittent episodes of diarrhea with urgency. Since she has cut back on gluten, she states that it is down to once a week, but she will have a tight sensation in the abdomen followed by pain and then she will have urgency. Most often it occurs in the afternoon. If she does not take Imodium, she will have greater than 5 stools. With Imodium, she will usually have 1 or 2 and is better by the following day. She has tried lactose-free diet, which did not have any kind of impact on her symptoms. She does report her mother had gluten and sensitive, although does not know she truly has sprue. Her mother is living at the age of 92. The patient reports that her symptoms did get worse after cholecystectomy in 2008. She reports in attempt she has had about 20-pound weight loss this year. She has noted no evidence for bright red blood per rectum or melena and has had no night sweats, chills or fever. Other than increasing her omeprazole to b.i.d., she has had no reported medication changes this year. PAST MEDICAL HISTORY: Significant for hyperlipidemia and a longstanding reflux symptoms. It sounds as though she was diagnosed with erosive esophagitis on past EGD where ulcers were noted, but she is not exactly sure within the esophagus or the stomach. She thought it was done here for roughly 5 years ago, but there is no record of any endoscopies being performed at [facility] and review of her electronic medical record. FAMILY HISTORY: She is not aware of any family history for GI tract malignancy including colon cancer. Her mother did have bowel obstruction due to what sounds like volvulus, still living at the age of 92 with gluten insensitivity reported. Father of complications of a stroke at the age of 70. She has five brothers and three sisters. She is not aware of any problems with intestinal issues with diarrhea or constipation. SOCIAL HISTORY: She reports no past smoking or significant alcohol intake. PAST SURGICAL HISTORY: Significant for cholecystectomy in 2008. REVIEW OF SYSTEMS: CONSTITUTIONAL: She has a 20-pound weight loss this year. Denies night sweats, chills or fever. CARDIOVASCULAR: She denies chest discomfort, syncope, presyncope, orthopnea, PND or pedal edema. PULMONARY: She denies cough or wheezing or any history of pulmonary disease. GASTROINTESTINAL: As noted in the HPI. PHYSICAL EXAMINATION: GENERAL: Reveals a pleasant white female appeared to be in no acute distress. VITAL SIGNS: Weight 251.4 pounds, blood pressure 122/90. HEENT: Unremarkable. CHEST: Clear. CARDIOVASCULAR: Reveals a regular rate and rhythm without murmur, S3 or S4. ABDOMEN: Soft, supple without mass or organomegaly. She has some epigastric discomfort to palpation without rebound or guarding. EXTREMITIES: Reveal no cyanosis, clubbing or edema. ASSESSMENT AND PLAN: For evaluation of increasing reflux symptoms with abdominal pain, predominantly epigastric as well as intermittent diarrhea with urgency, the patient will be set up for panendoscopy. We will need to perform small bowel biopsies to rule out sprue considering her above history. We will also be obtaining colonic biopsy to rule out microscopic colitis if there is no visible evidence for inflammation. Further recommendations will be forthcoming endoscopic findings. The patient was set up for 01/20/2020. Prep instructions with Suprep kit were given and questions were answered. Thank you for the referral of this pleasant lady. Job ID: [id number] DocumentID: [id number] Dictated Date: 01/11/2020 13:42:57 Master Yacht Date: 01/11/2020 14:06:54 Dictated By: HARLEEN DC MD
[2020-01-20] VITALS (20 sets, daily range): BP systolic 95–182; BP diastolic 50–80
[~2020-01-20] VITALS: Ht 167 cm; Wt 111.8 kg
[~2020-01-20 07:54] MED LIST changes: -LISI1TAB25 PO; +LISI1TAB46 PO
[2020-01-20] MEDS ORDERED: D5 LR IV SOLUTION 1,000 ML IV ONE (08:15)
[2020-01-20] MEDS ORDERED: D5 LR IV SOLUTION 1,000 ML IV PRN (08:30)
[2020-01-20] MEDS ORDERED: fentaNYL INJECTION 100 MCG/2 ML AMP IVP ONE (08:30)
[2020-01-20] MEDS ORDERED: LIDOCAINE JELLY 2% 6 ML SYRINGE MM PRN (08:30)
[2020-01-20] MEDS ORDERED: MIDAZOLAM 5 MG/5 ML (VERSED) VIAL ONE ×2 (08:51)
[2020-01-20] MEDS ORDERED: HURRICAINE EXT TUBE (BENZOCAINE) ONE (08:52)
[2020-01-20] MEDS ORDERED: LIDOCAINE JELLY 2% 6 ML SYRINGE ONE (08:52)
[2020-01-20] MEDS ORDERED: fentaNYL INJECTION 100 MCG/2 ML AMP ONE ×2 (08:52)
[2020-01-20] MEDS: MIDAZOLAM 5 MG/5 ML (VERSED) VIAL IV PRN ×3 (09:16→09:50)
--- NOTE | 2020-01-20 10:16 | Pre-Op Note & Conscious Sedat ---
Pre-Operative Progress Note H&P Reviewed The H&P was reviewed, patient examined and no changes noted. Date H&P Reviewed: Jan 20, 2020 Time H&P Reviewed: 08:50 Conscious Sedation Pre-Proced ASA Score 2 For ASA 3 and 4: Consider anesthesia and medical clearance. Also, for patients with a history of failed moderate sedation consider anesthesia. Airway Lungs Heart ASA score ASA 1: a normal healthy patient ASA 2: a patient with a mild systemic disease (mid diabetes, controlled hypertension, obesity ASA 3: a patient with a severe systemic disease that limits activity (angina, COPD, prior Myocardial infarction) ASA 4: a patient with an incapacitating disease that is a constant threat to life (CHF, renal failure) ASA 5: a moribund patient not expected to survive 24 hrs. (ruptured aneurysm) ASA 6: a declared brain- patient whose organs are being harvested. For emergent operations, add the letter E after the classification Mallampati Classification Grade 3 Sedation Plan Analgesia, Amnesia, Plan communicated to team members, Discussed options with patient/fam, Discussed risks with patient/fam The patient is an appropriate candidate to undergo the planned procedure, sedation, and anesthesia. The patient immediately re-assessed prior to indication. HARLEEN DC MD Jan 20, 2020 10:15
--- NOTE | 2020-01-20 19:10 | OPERATIVE REPORT ---
DATE OF SERVICE: PANENDOSCOPY SUMMARY INDICATION FOR THE PROCEDURE: Colonoscopy was performed for weight loss and intermittent diarrhea. EGD was performed for the same as well as epigastric pain and history of reflux. DESCRIPTION OF PROCEDURE: The patient was placed in the left lateral decubitus position. Prior to undergoing colonoscopy, digital rectal evaluation was performed. Anal sphincter tone was normal and the perianal reflexes intact. No abnormalities were noted on digital inspection of anal canal or distal rectal vault. The colonoscope was then inserted into the rectum and under direct visualization advanced to the cecum. The cecum was identified by identification of the ileocecal valve and cecal strap. Photographic documentation was obtained. Quality of prep was fair. The patient tolerated the procedure well. FINDINGS: There was no evidence for internal or external hemorrhoids and the rectum was unremarkable. No evidence for diverticular disease was noted. The sigmoid colon was unremarkable. Present in the distal descending colon was a diminutive 4 mm sessile polyp that was biopsied and ablated and submitted for histopathology. Present in the proximal transverse colon were 2 pedunculated polyps. They were removed via snare forceps. They were suctioned through the trapezius and there was some fragmentation. The remainder of the transverse colon and ascending colon were unremarkable. There was a sessile adenomatous appearing cecal polyp measuring roughly 3 x 6 mm in size. It was photographed and biopsied and ablated with no blood loss. ASSESSMENT: Two moderate size pedunculated polyps were removed via snare from the proximal transverse colon. Sessile polyps were cauterized, present in the distal ascending colon and cecum. As long as there is no evidence for dysplasia or microscopic malignancy, we will be advocating repeat surveillance colonoscopy in one year. The quality of prep was suboptimal. We will need to discuss additional measures for bowel cleansing on return. We then proceeded with EGD evaluation. DESCRIPTION OF PROCEDURE:e The upper endoscope was inserted into the oral cavity and under direct visualization, the esophagus was intubated. Endoscope was passed down the esophagus through the stomach and into the second portion of the duodenum. A careful inspection was made as the endoscope was withdrawn. The patient tolerated the procedure well. FINDINGS: The posterior pharynx, true and false vocal folds and arytenoid aperture were unremarkable to visual inspection. The epiglottis was unremarkable as well. The proximal, mid and distal esophagus were unremarkable in appearance. The Z line was distinct without evidence for erosive esophagitis and there was no evidence for hiatal hernia. The cardia and fundus of the stomach were unremarkable. There were pseudopolyps versus true polyps 4 or 5 noted in the antrum, the largest one was biopsied and submitted for histopathology. There was no evidence for gastritis. The pylorus, the pyloric channel, the duodenal bulb and second portion of the duodenum were unremarkable. Considering the patient's history of diarrhea, biopsy was obtained and submitted from the second portion of the small intestine, although visibly there does not appear to be evidence for villous atrophy on gross inspection. ASSESSMENT: No evidence for erosive esophagitis was noted and the patient did not have a hiatal hernia. A biopsy from the distal esophagus was obtained and submitted for evaluation for eosinophilic esophagitis. There were true polyps versus pseudo polyps noted in the antrum of the stomach. The largest was biopsied and submitted for histopathology. If it does come back as either a serrated or an adenomatous polyp when the patient returns for colonoscopy. I will perform a polypectomy at that time. If they are not true polyps, she will not need future surveillance EGD. The patient's episodic diarrhea has improved, would consider small bowel bacterial overgrowth. For significant recurrence of diarrhea would recommend consideration for emperic Xifaxin. I thank you for the referral. Sincerely Harleen Dc Job ID: [id number] DocumentID: [id number] Dictated Date: 01/20/2020 10:51:03 Telephone Cleaner Date: 01/20/2020 19:10:08 Dictated By: HARLEEN DC MD [facility]
== END 2020-01-20 11:10 | disposition home or self-care (01) ==
LOC: ENDO 07:54
PROVIDERS: ATTEND Internal Medicine
DX: D12.4 Benign neoplasm of descending colon (principal); D12.3 Benign neoplasm of transverse colon; D12.0 Benign neoplasm of cecum; K31.7 Polyp of stomach and duodenum; E78.5 Hyperlipidemia, unspecified; K21.9 Gastro-esophageal reflux disease without esophagitis; Z87.19 Personal history of other diseases of the digestive system
CPT/HCPCS: 88305

== ENCOUNTER 2020-09-20 14:31 | Outpatient (RCR) | payer BC ==
[~2020-09-20 14:31] MED LIST changes: -OMEP40CA27 PO; +OMEP40CA6 PO; -PANT40TA3 PO; +PANT40TA52 PO; +SERT-414 PO; -SERT100T8 PO
== END 2020-11-15 | disposition home or self-care (01) ==
PROVIDERS: ATTEND Family Medicine
DX: M25.552 Pain in left hip (principal); M54.5 Low back pain; M54.6 Pain in thoracic spine; M62.81 Muscle weakness (generalized)

== ENCOUNTER → 2020-10-23 | Outpatient (CLI) | payer BC ==
[~2020-10-23] MED LIST changes: +OMEP40CA27 PO; -OMEP40CA6 PO
--- NOTE | 2020-10-23 16:27 | Diagnostic Imaging Report ---
INDICATION: Left hip pain. COMPARISON: 03/21/2010 FINDINGS: Two views of the left hip were obtained and show no fractures, dislocations, or other acute bony abnormalities. Mild osteoarthritic changes are noted. Femoroacetabular joint space is otherwise maintained. The soft tissues appear unremarkable. No radiopaque foreign bodies are identified. IMPRESSION: Mild osteoarthritic changes of the left hip, but no evidence of acute fracture or dislocation. Dictated by: Dictated on workstation # [id number]
== END ==
LOC: RAD 15:56
PROVIDERS: ATTEND Family Medicine
DX: M16.12 Unilateral primary osteoarthritis, left hip (principal)
CPT/HCPCS: 73502

== ENCOUNTER → 2021-01-14 | Outpatient (CLI) | payer BC ==
[~2021-01-14] MED LIST changes: -OMEP40CA27 PO; +OMEP40CA6 PO
--- NOTE | 2021-01-15 12:50 | Diagnostic Imaging Report ---
Indication: Routine screening. Comparison is made with prior mammogram 01/13/2020 and 07/29/2018. 2-D and 3-D bilateral screening mammography was performed with CAD. Scattered fibroglandular densities are identified bilaterally. There is a new nodular density in the upper slightly outer right breast mid depth. Additional views are recommended. Occasional benign appearing nodular densities left breast again noted. There is no spiculated mass. No malignant-appearing microcalcifications are seen. Axillae are unremarkable. IMPRESSION: BI-RADS 0 Right breast density. Additional views are recommended for further evaluation. ACR BI-RADS Category 0: Incomplete. (Needs additional imaging evaluation). Result letter will be mailed to the patient. Note: At least 10% of breast cancer is not imaged by mammography. Dictated by: Dictated on workstation # [id number]
== END ==
LOC: RAD 14:45
PROVIDERS: ATTEND Family Medicine
DX: Z12.31 Encounter for screening mammogram for malignant neoplasm of breast (principal)
CPT/HCPCS: 77063; 77067

== ENCOUNTER → 2021-01-17 | Outpatient (CLI) | payer BC ==
[~2021-01-17] MED LIST changes: +CATHETER FLUSH 10 ML SYR IV PRN; +HOLD METFORMIN - RECEIVED CONTRAST 20 ML VIAL IV SCH; +IOHEXOL 350 MG/ML 100 ML (OMNIPAQUE 350) VIAL IV ONE; +NS 100 ML (IVPB) BAG IV ONE
--- NOTE | 2021-01-17 11:26 | Diagnostic Imaging Report ---
PROCEDURE: CT neck soft tissue with contrast. TECHNIQUE: Multiple contiguous axial images were obtained through the neck after the administration of contrast. Auto Exposure Controls were utilized during the CT exam to meet ALARA standards for radiation dose reduction. INDICATION: History of skin malignancy not otherwise specified. New palpable nodularity near the left jaw. COMPARISON: I have no relevant comparison. The orbital contents unremarkable. The nasopharynx, oropharynx and hypopharynx unremarkable. The infra laryngeal trachea unremarkable. Prevertebral and retropharyngeal spaces unremarkable. Airway is patent. There is mid to lower cervical spondylosis without high-grade stenosis. No bony destructive process or acute appearing osseous pathology. The mandible appeared unremarkable. The muscles of mastication symmetric and unremarkable. There are intraparenchymal nodules associated with the superficial lobe of the left parotid gland. The largest is mixed solid and cystic anterosuperiorly measuring 1.8 x 1.1 cm. Just deep to this mass is a similar mixed solid cystic lesion measuring 7 mm in diameter. The right parotid gland and space appeared normal. There is no distortion of the parapharyngeal fat. No cervical lymphadenopathy or suspicious extraparotid lesion. The thyroid glands unremarkable. The submandibular is normal. No sialoliths. Mild non-stenosing carotid vascular calcifications. Superior mediastinum, thoracic inlet and the visualized pulmonary apices nonacute. IMPRESSION: Indeterminate mixed solid and cystic intraparenchymal nodules in the left parotid gland. Given the reportedly new palpable abnormality, tissue sampling recommended. This could be performed with CT or sonographic localization if image guidance is needed for biopsy. The mucosal spaces of the neck and the osseous structures nonacute. Dictated by: Dictated on workstation # [id number]
== END ==
LOC: RAD 10:03
PROVIDERS: ATTEND Otolaryngology Otolaryngology/Facial Plastic Surgery
DX: K11.8 Other diseases of salivary glands (principal)
CPT/HCPCS: 70491

== ENCOUNTER → 2021-01-24 | Outpatient (CLI) | payer BC ==
[~2021-01-24] MED LIST changes: -CATHETER FLUSH 10 ML SYR IV PRN; -HOLD METFORMIN - RECEIVED CONTRAST 20 ML VIAL IV SCH; -IOHEXOL 350 MG/ML 100 ML (OMNIPAQUE 350) VIAL IV ONE; -NS 100 ML (IVPB) BAG IV ONE
--- NOTE | 2021-01-24 15:58 | Diagnostic Imaging Report ---
INDICATION: Right breast density. Patient presents for additional views. CORRELATION is made with recent screening study from 01/14/2021. TECHNIQUE: Unilateral right 2-D and 3-D diagnostic mammography was performed. This included spot compression CC and ML views as well as conventional 90 degree lateral view. FINDINGS: There are scattered densities in the right breast. There is a lobulated nodule in the upper and slightly outer aspect of the right breast approximately 4 cm from the nipple. This measures approximate 7 to 8 mm in size. Further evaluation with ultrasound is recommended. No other abnormalities are seen. IMPRESSION: BI-RADS 0 Nodule in the upper outer right breast approximately 11:00 to 11:30 location, 4 cm from the nipple. Further evaluation with ultrasound is recommended and will be performed today. ACR BI-RADS Category 0: Incomplete. (Needs additional imaging evaluation). Result letter will be mailed to the patient. Note: At least 10% of breast cancer is not imaged by mammography. Dictated by: Dictated on workstation # [id number]
--- NOTE | 2021-01-24 16:52 | Diagnostic Imaging Report ---
INDICATION: Right breast density. CORRELATION is made with diagnostic mammogram earlier the same day. Sonographic interrogation of the upper and slightly outer right breast was performed. There is a cyst at the 11:30 location, 3 cm from the nipple measuring 10 mm x 4 mm x 6 mm. This contains thin internal septations. No internal vascularity is seen. IMPRESSION: BI-RADS Category 2 Slightly lobulated cyst at the 11:30 location of the right breast, 3 cm from the nipple, accounting for the mammographic density. The patient may return to routine annual screening mammography. ACR BI-RADS Category 2: Benign findings. Result letter will be mailed to the patient. Note: At least 10% of breast cancer is not imaged by mammography. Dictated by: Dictated on workstation # [id number]
== END ==
LOC: RAD 13:15
PROVIDERS: ATTEND Family Medicine
DX: N60.01 Solitary cyst of right breast (principal)
CPT/HCPCS: 76642; 77065; G0279

== ENCOUNTER 2021-02-01 05:28 | Outpatient (RCR) | payer BC ==
[~2021-02-01] VITALS: Ht 167.7 cm; Wt 111.8 kg
[~2021-02-01 05:28] MED LIST changes: +MELO5CAP3 PO; +TOLT4CAP26 PO
== END 2021-02-01 12:33 | disposition home or self-care (01) ==
LOC: PREOP 05:28
PROVIDERS: ATTEND Internal Medicine
DX: Z01.818 Encounter for other preprocedural examination (principal); Z20.822 Contact with and (suspected) exposure to COVID-19
CPT/HCPCS: 87635

== ENCOUNTER 2021-02-05 06:58 | Day surgery (SDC) | payer BC ==
[~2021-02-05] VITALS: Ht 167.7 cm; Wt 111.8 kg
[2021-02-05] VITALS (14 sets, daily range): BP systolic 95–139; BP diastolic 53–83
--- NOTE | 2021-02-05 06:31 | HISTORY AND PHYSICAL ---
DATE OF SERVICE: PANENDOSCOPY HISTORY AND PHYSICAL HISTORY OF PRESENT ILLNESS: The patient is a 65-year-old white female seen for surveillance panendoscopy due to past history of multiple adenomatous colonic polyps having been removed one year ago. She had five tubular adenomas removed via snare, were adjacent to each other in the proximal transverse colon. No dysplasia was noted. In the interim, over the last several months, she has noticed some increased jaw swelling. It is over the left parotid gland area. She had a previous history of skin cancer removed from the left latter day and biopsy revealed findings compatible of skin cancer metastasis, she believes it is squamous cell. She will be undergoing EGD evaluation as a year ago she did have several nodular areas in the antrum that were submucosal. Had an overlying biopsy revealed no abnormality. So, considering metastatic skin cancer diagnosis, we will be repeating EGD evaluation as well. She has noted no abdominal distention and has noted no melena or bright red blood per rectum. Denies abdominal pain. FAMILY HISTORY: She is not aware of any family history for GI tract malignancy. Her mother did have bowel obstruction, possibly due to a volvulus, still living at the age of 93 with reported gluten insensitivity. Father of complications of stroke at the age of 70. She has five brothers and three sisters and is not aware of any significant health problems. PAST SURGICAL HISTORY: Significant for cholecystectomy in 2008. SOCIAL HISTORY: She reports no past smoking or significant alcohol intake. REVIEW OF SYSTEMS: CONSTITUTIONAL: She denies any night sweats, chills, fever, or change in weight. She is fully vaccinated for COVID. CARDIOVASCULAR: She denies chest pain, orthopnea, PND, pedal edema or dyspnea on exertion. PULMONARY: Denies cough, wheezing or shortness of breath. GASTROINTESTINAL: As noted in the HPI. PHYSICAL EXAMINATION: GENERAL: Reveals a white female, overweight, in no acute distress. VITAL SIGNS: Her weight was up 2.6 pounds from one year ago at 254, blood pressure 130/80. HEENT: Unremarkable except for a firm nodule over the left parotid gland. There is no evidence for facial muscle weakness. Sclerae nonicteric. CHEST: Clear. CARDIOVASCULAR: Reveals a regular rate and rhythm without murmur, S3 or S4. ABDOMEN: Soft, supple without mass, organomegaly or tenderness. EXTREMITIES: Reveal no cyanosis, clubbing or edema. ASSESSMENT AND PLAN: The patient is being set up for panendoscopy, see HPI. Prep instructions were given and questions were answered. I thank you for the referral of this pleasant lady. Job ID: [id number] DocumentID: [id number] Dictated Date: 01/30/2021 17:19:47 Clerical Associate Date: 01/30/2021 18:06:23 Dictated By: HARLEEN DC MD
[2021-02-05] MEDS ORDERED: D5 LR IV SOLUTION 1,000 ML IV STA (06:59)
[2021-02-05] MEDS ORDERED: HURRICAINE EXT TUBE (BENZOCAINE) XX PRN (07:00)
[2021-02-05] MEDS ORDERED: FLUMAZENIL (ROMAZICON) 0.1 MG/ML 10 ML VIAL IV ONE (07:00)
[2021-02-05] MEDS ORDERED: MIDAZOLAM 5 MG/5 ML (VERSED) VIAL IV ONE (07:00)
[2021-02-05] MEDS ORDERED: fentaNYL INJ 100 MCG/2 ML AMP IVP ONE (07:00)
[2021-02-05] MEDS ORDERED: NALOXONE 0.4 MG/ML 1 ML (NARCAN) VIAL IVP PRN (07:00)
[2021-02-05] MEDS ORDERED: LIDOCAINE JELLY 2% 6 ML SYRINGE MM PRN (07:00)
--- NOTE | 2021-02-05 07:34 | Pre-Op Note & Conscious Sedat ---
Pre-Operative Progress Note H&P Reviewed The H&P was reviewed, patient examined and no changes noted. Date H&P Reviewed: Feb 05, 2021 Time H&P Reviewed: 07:15 Conscious Sedation Pre-Proced ASA Score 2 For ASA 3 and 4: Consider anesthesia and medical clearance. Also, for patients with a history of failed moderate sedation consider anesthesia. Airway Lungs Heart ASA score ASA 1: a normal healthy patient ASA 2: a patient with a mild systemic disease (mid diabetes, controlled hypertension, obesity ASA 3: a patient with a severe systemic disease that limits activity (angina, COPD, prior Myocardial infarction) ASA 4: a patient with an incapacitating disease that is a constant threat to life (CHF, renal failure) ASA 5: a moribund patient not expected to survive 24 hrs. (ruptured aneurysm) ASA 6: a declared brain- patient whose organs are being harvested. For emergent operations, add the letter E after the classification Mallampati Classification Grade 2 Sedation Plan Analgesia, Amnesia, Plan communicated to team members, Discussed options with patient/fam, Discussed risks with patient/fam The patient is an appropriate candidate to undergo the planned procedure, sedation, and anesthesia. The patient immediately re-assessed prior to indication. HARLEEN DC MD Feb 05, 2021 07:34
--- NOTE | 2021-02-06 00:42 | OPERATIVE REPORT ---
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 DESCRIPTION OF PROCEDURE: The patient was placed in the left lateral decubitus position. The colonoscope was inserted into the rectum and under direct visualization advanced to cecum. The cecum was identified by identification of ileocecal valve and cecal strap. Photographic documentation was obtained. Careful inspection was made as colonoscope withdrawn. Quality of prep was good. FINDINGS: Digital rectal evaluation of the anal canal and distal rectal vault was unremarkable with normal sphincter tone and perianal reflux. There was no evidence for internal or external hemorrhoids and the rectum was unremarkable. No evidence for diverticular disease was noted. Two adjacent sessile polyps were noted in the proximal sigmoid colon. Both were biopsied and ablated and submitted for histopathology. Present at the splenic flexure was another sessile polyp. The polyp base was grasped, and the polyp was cauterized with minimal subsequent blood loss. Another sessile adenomatous appearing polyp was noted in the proximal transverse colon that was biopsied and ablated with no subsequent blood loss. The remainder of the transverse colon, hepatic flexure, ascending colon and cecum were unremarkable. ASSESSMENT: Four small adenomatous appearing polyps were removed as noted above via hot forceps. As long as there is no surprise on histopathology report and provided the patient is felt to be in remission in regards to her squamous cell carcinoma, would advocate consideration for repeat surveillance colonoscopy in 3 years. We then proceeded with EGD evaluation. The endoscope was inserted in the oral cavity and under direct visualization, esophagus was intubated. The endoscope was passed down the esophagus through the stomach and second portion of the duodenum. Careful inspection was made as the endoscope was withdrawn. FINDINGS: The posterior pharynx, true and false vocal folds and arytenoid aperture were unremarkable on gross inspection. The proximal, mid and distal esophagus were unremarkable. There was a small sliding hiatal hernia present without evidence for erosive esophagitis or Mcclure's change. The cardia of the stomach was unremarkable. Present along the greater curvature of the fundus dependently and also dependently in the antrum were areas of erythema without ulceration. Photograph was obtained, a biopsy was obtained and submitted for histopathology. Previous small submucosal antral nodules were unchanged in size compared to a year ago indicative of a benign process. No ulceration was noted. The pylorus, pyloric channel, duodenal bulb and second portion of duodenum were unremarkable. ASSESSMENT: Fundal and antral erythema dependently. Suspect likely nonsteroidal gastropathy, especially with an upcoming surgery. The patient was advised to abstain from meloxicam, lnyf-bgn-dejmmvi nonsteroidals and aspirin. Utilizing Tylenol if needed for pain. Previously noted small submucosal antral nodules were unchanged in size, indicative of a benign process and no further workup recommended. The patient does have a small sliding hiatal hernia, but no evidence for Mcclure's change or erosive esophagitis were noted. I thank you for the referral of this pleasant lady. Job ID: [id number] DocumentID: [id number] Dictated Date: 02/05/2021 15:02:10 Pharmacist In Charge Date: 02/06/2021 00:40:57 Dictated By: HARLEEN DC MD
== END 2021-02-05 08:59 | disposition home or self-care (01) ==
LOC: ENDO 06:58
PROVIDERS: ATTEND Internal Medicine
DX: D12.3 Benign neoplasm of transverse colon (principal); K63.5 Polyp of colon; K31.89 Other diseases of stomach and duodenum; K44.9 Diaphragmatic hernia without obstruction or gangrene; C44.92 Squamous cell carcinoma of skin, unspecified; Z90.49 Acquired absence of other specified parts of digestive tract; Z80.0 Family history of malignant neoplasm of digestive organs; Z82.3 Family history of stroke

== ENCOUNTER 2021-03-21 09:58 | Outpatient (CLI) | payer BC ==
[~2021-03-21] VITALS: Wt 113.6 kg
[2021-03-21 10:05] VITALS: BP 141/75
== END 2021-03-21 11:25 | disposition home or self-care (01) ==
LOC: SDC 09:58
PROVIDERS: ATTEND Internal Medicine Hematology & Oncology
DX: C44.92 Squamous cell carcinoma of skin, unspecified (principal); C77.9 Secondary and unspecified malignant neoplasm of lymph node, unspecified; E78.5 Hyperlipidemia, unspecified; I10 Essential (primary) hypertension; Z98.890 Other specified postprocedural states
CPT/HCPCS: 36569; 76937; C1751

== ENCOUNTER 2021-04-16 16:57 | Outpatient (RCR) | payer BC ==
[2021-03-18 11:05] LABS: CREATININE SERUM 0.7 MG/DL (0.60-1.30)
[2021-03-25 10:16] LABS: BASOPHILS # (AUTO) 0.1 10^3/uL (0.0-0.1); BASOPHILS % (AUTO) 1 % (0-10); EOSINOPHILS # (AUTO) 0.2 10^3/uL (0.0-0.3); EOSINOPHILS % (AUTO) 3 % (0-10); HEMATOCRIT 37 % (35-52); HEMOGLOBIN 12.4 g/dL (11.5-16.0); LYMPHOCYTES # (AUTO) 2.1 10^3/uL (1.0-4.0); LYMPHOCYTES % (AUTO) 29 % (12-44); MEAN CORPUSCULAR HEMOGLOBIN 29 pg (25-34); MEAN CORPUSCULAR HGB CONC 34 g/dL (32-36); MEAN CORPUSCULAR VOLUME 88 fL (80-99); MEAN PLATELET VOLUME 10.3 fL (9.0-12.2); MONOCYTES # (AUTO) 0.6 10^3/uL (0.0-1.0); MONOCYTES % (AUTO) 8 % (0-12); NEUTROPHILS # (AUTO) 4.3 10^3/uL (1.8-7.8); NEUTROPHILS % (AUTO) 59 % (42-75); PLATELET COUNT 237 10^3/uL (130-400); WHITE BLOOD COUNT 7.4 10^3/uL (4.3-11.0)
[2021-03-25 10:35] LABS: BILIRUBIN,TOTAL 0.4 MG/DL (0.1-1.0); CALCIUM 9.1 MG/DL (8.5-10.1); CREATININE SERUM 0.76 MG/DL (0.60-1.30); POTASSIUM 4.4 MMOL/L (3.6-5.0); TOTAL PROTEIN 7.3 GM/DL (6.4-8.2)
[2021-04-01 09:24] LABS: BASOPHILS % (AUTO) 1 % (0-10); EOSINOPHILS # (AUTO) 0.1 10^3/uL (0.0-0.3); EOSINOPHILS % (AUTO) 2 % (0-10); HEMATOCRIT 36 % (35-52); HEMOGLOBIN 12.2 g/dL (11.5-16.0); LYMPHOCYTES # (AUTO) 1.3 10^3/uL (1.0-4.0); LYMPHOCYTES % (AUTO) 22 % (12-44); MEAN CORPUSCULAR HEMOGLOBIN 30 pg (25-34); MEAN CORPUSCULAR HGB CONC 34 g/dL (32-36); MEAN CORPUSCULAR VOLUME 87 fL (80-99); MEAN PLATELET VOLUME 10.3 fL (9.0-12.2); MONOCYTES # (AUTO) 0.5 10^3/uL (0.0-1.0); MONOCYTES % (AUTO) 8 % (0-12); NEUTROPHILS % (AUTO) 66 % (42-75); PLATELET COUNT 260 10^3/uL (130-400)
[2021-04-01 09:40] LABS: CALCIUM 9.1 MG/DL (8.5-10.1); CREATININE SERUM 0.7 MG/DL (0.60-1.30); MAGNESIUM 2.1 MG/DL (1.6-2.4); POTASSIUM 3.7 MMOL/L (3.6-5.0)
[2021-04-08 09:11] LABS: BASOPHILS # (AUTO) 0.1 10^3/uL (0.0-0.1); BASOPHILS % (AUTO) 1 % (0-10); EOSINOPHILS # (AUTO) 0.1 10^3/uL (0.0-0.3); EOSINOPHILS % (AUTO) 2 % (0-10); HEMATOCRIT 37 % (35-52); HEMOGLOBIN 12.5 g/dL (11.5-16.0); LYMPHOCYTES # (AUTO) 1.1 10^3/uL (1.0-4.0); LYMPHOCYTES % (AUTO) 19 % (12-44); MEAN CORPUSCULAR HEMOGLOBIN 30 pg (25-34); MEAN CORPUSCULAR HGB CONC 34 g/dL (32-36); MEAN CORPUSCULAR VOLUME 87 fL (80-99); MONOCYTES # (AUTO) 0.4 10^3/uL (0.0-1.0); MONOCYTES % (AUTO) 7 % (0-12); NEUTROPHILS # (AUTO) 4.3 10^3/uL (1.8-7.8); NEUTROPHILS % (AUTO) 71 % (42-75); PLATELET COUNT 250 10^3/uL (130-400); WHITE BLOOD COUNT 6.1 10^3/uL (4.3-11.0)
[2021-04-08 09:30] LABS: CALCIUM 9.1 MG/DL (8.5-10.1); CREATININE SERUM 0.74 MG/DL (0.60-1.30); MAGNESIUM 2.1 MG/DL (1.6-2.4); POTASSIUM 3.6 MMOL/L (3.6-5.0)
[2021-04-15 09:29] LABS: BASOPHILS # (AUTO) 0.1 10^3/uL (0.0-0.1); BASOPHILS % (AUTO) 1 % (0-10); EOSINOPHILS # (AUTO) 0.1 10^3/uL (0.0-0.3); EOSINOPHILS % (AUTO) 2 % (0-10); HEMATOCRIT 36 % (35-52); HEMOGLOBIN 12.7 g/dL (11.5-16.0); LYMPHOCYTES # (AUTO) 1.1 10^3/uL (1.0-4.0); LYMPHOCYTES % (AUTO) 21 % (12-44); MEAN CORPUSCULAR HEMOGLOBIN 30 pg (25-34); MEAN CORPUSCULAR HGB CONC 35 g/dL (32-36); MEAN CORPUSCULAR VOLUME 86 fL (80-99); MEAN PLATELET VOLUME 9.9 fL (9.0-12.2); MONOCYTES # (AUTO) 0.5 10^3/uL (0.0-1.0); MONOCYTES % (AUTO) 10 % (0-12); NEUTROPHILS # (AUTO) 3.4 10^3/uL (1.8-7.8); NEUTROPHILS % (AUTO) 66 % (42-75); PLATELET COUNT 251 10^3/uL (130-400); WHITE BLOOD COUNT 5.2 10^3/uL (4.3-11.0)
[2021-04-15 09:49] LABS: ALBUMIN 4.1 GM/DL (3.2-4.5); BILIRUBIN,TOTAL 0.7 MG/DL (0.1-1.0); CALCIUM 9.6 MG/DL (8.5-10.1); CREATININE SERUM 0.82 MG/DL (0.60-1.30); MAGNESIUM 1.8 MG/DL (1.6-2.4); POTASSIUM 3.6 MMOL/L (3.6-5.0); TOTAL PROTEIN 7.2 GM/DL (6.4-8.2)
[~2021-04-16] VITALS: Ht 167.6 cm; Wt 113.4 kg
[~2021-04-16 16:57] MED LIST changes: +CISplatin 60 MG, MANNITOL 25% INJ (CANCER CTR) 12.5 GM, MAGNESIUM SULFATE (CANCER CTR) ... IV SCH; +FOSAPREPITANT (CANCER CENTER) 150 MG in NS (IVPB) CANCER CENTER ONLY 150 ML IV SCH; +NS IV 1000 ML (CANCER CTR) IV SCH
== END 2021-04-17 08:44 | disposition home or self-care (01) ==
LOC: ONC 16:57
PROVIDERS: ATTEND Internal Medicine Hematology & Oncology
DX: Z51.11 Encounter for antineoplastic chemotherapy (principal); Z51.0 Encounter for antineoplastic radiation therapy; C44.42 Squamous cell carcinoma of skin of scalp and neck; C77.9 Secondary and unspecified malignant neoplasm of lymph node, unspecified; I10 Essential (primary) hypertension; E78.5 Hyperlipidemia, unspecified; Z90.89 Acquired absence of other organs
CPT/HCPCS: G0463 ×2; 36415; 36591; 77300; 77301; 77334; 77336; 77338; 77386; 77470; 80048; 80053; 82565; 83735; 84520; 85025; 96367; 96375; 96413; 99204; 99213; 99214

== ENCOUNTER 2021-05-15 08:44 | Outpatient (RCR) | payer MEDICARE ==
[2021-04-22 09:28] LABS: BASOPHILS % (AUTO) 1 % (0-10); EOSINOPHILS # (AUTO) 0.1 10^3/uL (0.0-0.3); EOSINOPHILS % (AUTO) 1 % (0-10); HEMATOCRIT 34 % (35-52); LYMPHOCYTES # (AUTO) 0.9 10^3/uL (1.0-4.0); LYMPHOCYTES % (AUTO) 21 % (12-44); MEAN CORPUSCULAR HEMOGLOBIN 30 pg (25-34); MEAN CORPUSCULAR HGB CONC 35 g/dL (32-36); MEAN CORPUSCULAR VOLUME 85 fL (80-99); MEAN PLATELET VOLUME 9.8 fL (9.0-12.2); MONOCYTES # (AUTO) 0.4 10^3/uL (0.0-1.0); MONOCYTES % (AUTO) 10 % (0-12); NEUTROPHILS # (AUTO) 2.8 10^3/uL (1.8-7.8); NEUTROPHILS % (AUTO) 66 % (42-75); PLATELET COUNT 216 10^3/uL (130-400); WHITE BLOOD COUNT 4.2 10^3/uL (4.3-11.0)
[2021-04-22 09:41] LABS: CALCIUM 9.1 MG/DL (8.5-10.1); CREATININE SERUM 0.83 MG/DL (0.60-1.30); POTASSIUM 3.4 MMOL/L (3.6-5.0)
[2021-04-29 09:38] LABS: BASOPHILS % (AUTO) 0 % (0-10); EOSINOPHILS % (AUTO) 1 % (0-10); HEMATOCRIT 31 % (35-52); HEMOGLOBIN 11.3 g/dL (11.5-16.0); LYMPHOCYTES # (AUTO) 0.8 10^3/uL (1.0-4.0); LYMPHOCYTES % (AUTO) 17 % (12-44); MEAN CORPUSCULAR HEMOGLOBIN 31 pg (25-34); MEAN CORPUSCULAR HGB CONC 36 g/dL (32-36); MEAN CORPUSCULAR VOLUME 85 fL (80-99); MEAN PLATELET VOLUME 9.9 fL (9.0-12.2); MONOCYTES # (AUTO) 0.5 10^3/uL (0.0-1.0); MONOCYTES % (AUTO) 10 % (0-12); NEUTROPHILS # (AUTO) 3.2 10^3/uL (1.8-7.8); NEUTROPHILS % (AUTO) 71 % (42-75); PLATELET COUNT 159 10^3/uL (130-400); WHITE BLOOD COUNT 4.5 10^3/uL (4.3-11.0)
[2021-04-29 09:52] LABS: CALCIUM 9.3 MG/DL (8.5-10.1); CREATININE SERUM 0.91 MG/DL (0.60-1.30); POTASSIUM 3.8 MMOL/L (3.6-5.0)
[2021-05-06 09:33] LABS: BASOPHILS % (AUTO) 0 % (0-10); EOSINOPHILS % (AUTO) 1 % (0-10); HEMATOCRIT 31 % (35-52); HEMOGLOBIN 11.1 g/dL (11.5-16.0); LYMPHOCYTES # (AUTO) 0.6 10^3/uL (1.0-4.0); LYMPHOCYTES % (AUTO) 17 % (12-44); MEAN CORPUSCULAR HEMOGLOBIN 30 pg (25-34); MEAN CORPUSCULAR HGB CONC 36 g/dL (32-36); MEAN CORPUSCULAR VOLUME 85 fL (80-99); MEAN PLATELET VOLUME 9.7 fL (9.0-12.2); MONOCYTES # (AUTO) 0.3 10^3/uL (0.0-1.0); MONOCYTES % (AUTO) 9 % (0-12); NEUTROPHILS # (AUTO) 2.4 10^3/uL (1.8-7.8); NEUTROPHILS % (AUTO) 73 % (42-75); PLATELET COUNT 151 10^3/uL (130-400); WHITE BLOOD COUNT 3.4 10^3/uL (4.3-11.0)
[2021-05-06 09:53] LABS: ALBUMIN 4.1 GM/DL (3.2-4.5); BILIRUBIN,TOTAL 0.8 MG/DL (0.1-1.0); CALCIUM 9.4 MG/DL (8.5-10.1); CREATININE SERUM 1.03 MG/DL (0.60-1.30); MAGNESIUM 1.7 MG/DL (1.6-2.4); POTASSIUM 3.4 MMOL/L (3.6-5.0); TOTAL PROTEIN 7.3 GM/DL (6.4-8.2)
[2021-05-13 10:14] LABS: BASOPHILS % (AUTO) 0 % (0-10); EOSINOPHILS % (AUTO) 1 % (0-10); HEMATOCRIT 31 % (35-52); LYMPHOCYTES # (AUTO) 0.6 10^3/uL (1.0-4.0); LYMPHOCYTES % (AUTO) 19 % (12-44); MEAN CORPUSCULAR HEMOGLOBIN 31 pg (25-34); MEAN CORPUSCULAR HGB CONC 36 g/dL (32-36); MEAN CORPUSCULAR VOLUME 86 fL (80-99); MEAN PLATELET VOLUME 9.7 fL (9.0-12.2); MONOCYTES # (AUTO) 0.3 10^3/uL (0.0-1.0); MONOCYTES % (AUTO) 10 % (0-12); NEUTROPHILS # (AUTO) 2.2 10^3/uL (1.8-7.8); NEUTROPHILS % (AUTO) 70 % (42-75); PLATELET COUNT 164 10^3/uL (130-400); WHITE BLOOD COUNT 3.2 10^3/uL (4.3-11.0)
[2021-05-13 10:32] LABS: CALCIUM 9.5 MG/DL (8.5-10.1); CREATININE SERUM 1.05 MG/DL (0.60-1.30); MAGNESIUM 1.7 MG/DL (1.6-2.4); POTASSIUM 4.5 MMOL/L (3.6-5.0)
== END 2021-05-17 | disposition home or self-care (01) ==
LOC: ONC 08:44
PROVIDERS: ATTEND Internal Medicine Hematology & Oncology
DX: Z51.0 Encounter for antineoplastic radiation therapy (principal); C44.42 Squamous cell carcinoma of skin of scalp and neck; C77.9 Secondary and unspecified malignant neoplasm of lymph node, unspecified; I10 Essential (primary) hypertension; E78.5 Hyperlipidemia, unspecified; Z90.89 Acquired absence of other organs
CPT/HCPCS: 36591; 77336; 77386; 80048; 80053; 83735; 85025; 96360; 96367; 96375; 96413

== ENCOUNTER 2021-05-27 12:16 | Outpatient (RCR) | payer MEDICARE ==
[2021-05-20 10:49] LABS: BASOPHILS % (AUTO) 0 % (0-10); EOSINOPHILS % (AUTO) 1 % (0-10); HEMATOCRIT 32 % (35-52); HEMOGLOBIN 11.4 g/dL (11.5-16.0); LYMPHOCYTES # (AUTO) 0.4 10^3/uL (1.0-4.0); LYMPHOCYTES % (AUTO) 17 % (12-44); MEAN CORPUSCULAR HEMOGLOBIN 31 pg (25-34); MEAN CORPUSCULAR HGB CONC 36 g/dL (32-36); MEAN CORPUSCULAR VOLUME 88 fL (80-99); MEAN PLATELET VOLUME 9.7 fL (9.0-12.2); MONOCYTES # (AUTO) 0.2 10^3/uL (0.0-1.0); MONOCYTES % (AUTO) 9 % (0-12); NEUTROPHILS # (AUTO) 1.7 10^3/uL (1.8-7.8); NEUTROPHILS % (AUTO) 72 % (42-75); PLATELET COUNT 231 10^3/uL (130-400); WHITE BLOOD COUNT 2.3 10^3/uL (4.3-11.0)
[2021-05-20 10:58] LABS: ALBUMIN 4.4 GM/DL (3.2-4.5); BILIRUBIN,TOTAL 0.7 MG/DL (0.1-1.0); CALCIUM 9.8 MG/DL (8.5-10.1); CREATININE SERUM 1.48 MG/DL (0.60-1.30); POTASSIUM 4.2 MMOL/L (3.6-5.0); TOTAL PROTEIN 7.4 GM/DL (6.4-8.2)
[~2021-05-27 12:16] MED LIST changes: -CISplatin 60 MG, MANNITOL 25% INJ (CANCER CTR) 12.5 GM, MAGNESIUM SULFATE (CANCER CTR) ... IV SCH; -FOSAPREPITANT (CANCER CENTER) 150 MG in NS (IVPB) CANCER CENTER ONLY 150 ML IV SCH; +NS IV 1000 ML (CANCER CTR) 1,000 ML ONE; -NS IV 1000 ML (CANCER CTR) IV SCH
[2021-05-27] MEDS ORDERED: NS IV 1000 ML (CANCER CTR) 1,000 ML ONE (12:31)
[2021-05-27 12:51] LABS: CALCIUM 9.9 MG/DL (8.5-10.1); CREATININE SERUM 1.22 MG/DL (0.60-1.30); POTASSIUM 4.4 MMOL/L (3.6-5.0)
== END 2021-06-17 | disposition home or self-care (01) ==
LOC: ONC 12:16
PROVIDERS: ATTEND Internal Medicine Hematology & Oncology
DX: C44.42 Squamous cell carcinoma of skin of scalp and neck (principal); C77.9 Secondary and unspecified malignant neoplasm of lymph node, unspecified; I10 Essential (primary) hypertension; E78.5 Hyperlipidemia, unspecified; Z90.89 Acquired absence of other organs
CPT/HCPCS: 80053; 85025; 96360; G0463; 36591; 80048; 99213

== ENCOUNTER 2021-06-27 10:57 | Outpatient (RCR) | payer MEDICARE ==
[~2021-06-27 10:57] MED LIST changes: -NS IV 1000 ML (CANCER CTR) 1,000 ML ONE
== END 2021-07-15 | disposition home or self-care (01) ==
LOC: ONC 10:57
PROVIDERS: ATTEND Radiology Radiation Oncology
DX: C44.92 Squamous cell carcinoma of skin, unspecified (principal); C77.9 Secondary and unspecified malignant neoplasm of lymph node, unspecified; E78.5 Hyperlipidemia, unspecified; I10 Essential (primary) hypertension; Z90.89 Acquired absence of other organs; Z98.890 Other specified postprocedural states
CPT/HCPCS: 99213

== ENCOUNTER 2022-01-02 10:28 | Outpatient (RCR) | payer MEDICARE | END 2022-01-15 | disposition home or self-care (01) | LOC: ONC 10:28 | PROVIDERS: ATTEND Radiology Radiation Oncology | DX: C44.92 Squamous cell carcinoma of skin, unspecified (principal); C77.9 Secondary and unspecified malignant neoplasm of lymph node, unspecified; E78.5 Hyperlipidemia, unspecified; I10 Essential (primary) hypertension; Z98.890 Other specified postprocedural states | CPT/HCPCS: 99213 ==

== ENCOUNTER 2022-01-16 09:12 | Outpatient (CLI) | payer MEDICARE ==
[~2022-01-16] VITALS: Ht 167.7 cm; Wt 113.6 kg
[2022-01-16 09:27] VITALS: BP 163/86
[2022-01-16] MEDS ORDERED: ONDANSETRON 4 MG/2 ML (SDV) Z0FRAN IV PRN (09:30)
[2022-01-16] MEDS ORDERED: ACETAMINOPHEN 500 MG TAB (TYLENOL) PO PRN (09:30)
[2022-01-16] MEDS ORDERED: EPINEPHrine INJECTION 1 MG/ML AMP IM PRN (09:30)
[2022-01-16] MEDS ORDERED: diphenhydrAMINE 50 MG/ML INJ (BENADRYL) IV PRN (09:30)
[2022-01-16] MEDS ORDERED: BEBTELOVIMAB 175 MG/2 ML VIAL IV ONE (09:30)
[2022-01-16 10:10] VITALS: BP 150/85
== END 2022-01-16 10:10 | disposition home or self-care (01) ==
LOC: INFUSION 09:12
PROVIDERS: ATTEND Nurse Practitioner Family
DX: U07.1 COVID-19 (principal)

== ENCOUNTER → 2022-01-27 | Outpatient (CLI) | payer MEDICARE ==
--- NOTE | 2022-01-27 14:27 | Diagnostic Imaging Report ---
INDICATION: Routine screening. COMPARISON: 01/14/2021 and 01/13/2020. TECHNIQUE: 2D and 3D bilateral screening mammography was performed with CAD. FINDINGS: Both breasts are heterogeneously dense, limiting the sensitivity of mammography. No spiculated mass or malignant-appearing microcalcifications are seen. Occasional benign calcifications are noted. The axillae are unremarkable. IMPRESSION: No mammographic features suspicious for malignancy are identified. ACR BI-RADS Category 2: Benign findings. Result letter will be mailed to the patient. Note: At least 10% of breast cancer is not imaged by mammography. Dictated by: Dictated on workstation # [id number]
== END ==
LOC: RAD 09:28
PROVIDERS: ATTEND Family Medicine
DX: Z12.31 Encounter for screening mammogram for malignant neoplasm of breast (principal)
CPT/HCPCS: 77063; 77067

== ENCOUNTER 2023-01-15 10:46 | Emergency (ER) | payer MEDICARE ==
[~2023-01-15] VITALS: Ht 167 cm; Wt 101.0 kg
--- NOTE | 2023-01-15 11:07 | ED Upper Extremity ---
General Stated Complaint: RT HAND FINGER CUT WITH SAW Source: patient Exam Limitations: no limitations (SERINA UNDERWOOD) History of Present Illness Date Seen by Provider: Jan 15, 2023 Time Seen by Provider: 11:05 Initial Comments Patient is a 67-year-old female presents ED with a laceration to her left ring finger. This occurred 30 minutes ago. She was using hedge clippers when it slipped while cutting resulting in 2 lacerations to her left palmar clippers ring finger. Normal range of motion. Up-to-date on her tetanus within the past year. Bleeding controlled with direct pressure. Adipose involvement. Denies any distal numbness and tingling, decreased range of motion. (SERINA UNDERWOOD) Allergies and Home Medications Allergies Coded Allergies: Sulfa (Sulfonamide Antibiotics) (Unverified Allergy, Mild, GI UPSET, HIVES, 01/16/20) latex (Verified Allergy, Mild, RASH/BLISTERS, 01/16/20) Patient Home Medication List Home Medication List Reviewed: Yes (SERINA UNDERWOOD) Cetirizine HCl (Wal-Zyr) 10 Mg Tablet, 10 MG PO HS, (Reported) Entered as Reported by: JUAN C HALEY on 10/09/15 1012 Cholecalciferol (Vitamin D3) (Vitamin D3) 125 Mcg Capsule, 125 MCG PO DAILY, (Reported) Entered as Reported by: ELENA MARSH on 01/16/20 1017 Cyanocobalamin/FA/Pyridoxine (Virt-Debbi Tablet) 1 Each Tablet, 1 EACH PO BID, (Reported) Entered as Reported by: ELENA MARSH on 01/16/20 1017 Fluticasone Propionate (Fluticasone Propionate) 15.8 Ml [facility].susp, 15.8 ML NS HS PRN for CONGESTION, (Reported) Entered as Reported by: ELENA MARSH on 01/16/20 1017 Levothyroxine Sodium (Euthyrox) 25 Mcg Tablet, 25 MCG PO DAILY, (Reported) Entered as Reported by: ELENA MARSH on 01/16/20 1017 Losartan/Hydrochlorothiazide (Losartan-Hctz 100-25 mg Tab) 1 Each Tablet, 1 EACH PO DAILY, (Reported) Entered as Reported by: ELENA MARSH on 01/16/20 1017 Meloxicam, Submicronized (Meloxicam) 5 Mg Capsule, 5 MG PO DAILY, (Reported) Entered as Reported by: GERARDO WOOD on 01/31/21 1207 Multivit/Iron/FA/K/Herb No.244 (Alive Women's Energy Mv Tablet) 1 Each Tablet, 1 TAB PO DAILY, (Reported) Entered as Reported by: JUAN C HALEY on 10/09/15 1012 Omeprazole (Omeprazole) 40 Mg Capsule.dr, 40 MG PO BID, (Reported) Entered as Reported by: ELENA MARSH on 01/16/20 1017 Sertraline HCl (Sertraline HCl) 100 Mg Tablet, 100 MG PO DAILY, (Reported) Entered as Reported by: ELENA MARSH on 01/28/18 0931 Simvastatin (Simvastatin) 40 Mg Tablet, 40 MG PO HS, (Reported) Entered as Reported by: JUAN C HALEY on 10/09/15 1012 Tolterodine Tartrate (Tolterodine Tartrate ER) 4 Mg Cap.er.24h, 4 MG PO DAILY, (Reported) Entered as Reported by: GERARDO WOOD on 01/31/21 1207 Review of Systems Constitutional: No chills, No diaphoresis EENTM: No blurred vision Respiratory: No cough, No dyspnea on exertion Cardiovascular: No chest pain Gastrointestinal: No abdominal pain, No diarrhea, No nausea, No vomiting Genitourinary: No decreased output, No discharge Musculoskeletal: No back pain, No joint pain, No joint swelling; muscle pain Skin: change in color; No change in hair/nails; other (laceration) (SERINA UNDERWOOD) All Other Systems Reviewed Negative Unless Noted: Yes (SERINA UNDERWOOD) Past Zhlzijm-Irrnhd-Txvfyf Hx Immunizations Up To Date First/Initial COVID19 Vaccinat: YES Second COVID19 Vaccination Marcelino: YES (SERINA UNDERWOOD) Seasonal Allergies Seasonal Allergies: Yes (SERINA UNDERWOOD) Past Medical History Surgeries: Yes (back sx, right knee scope, bilat foot sx, WILFREDO TKR,) Gallbladder, Hysterectomy, Tubal Ligation Respiratory: Yes Sleep Apnea Currently Using CPAP: Yes Cardiac: Yes High Cholesterol, Hypertension Neurological: Yes Neuropathy Reproductive Disorders: No 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 Sexually Transmitted Disease: No HIV/AIDS: No Genitourinary: Yes (GETS UTI EVERYTIME HAS SURGERY) UTI-Chronic Gastrointestinal: Yes Gastroesophageal Reflux, Ulcer Musculoskeletal: Yes (OSTEOARTHRITS) Arthritis, Chronic Back Pain Endocrine: Yes Hypothyroidsim HEENT: Yes (READING GLASSES) Loss of Vision: Denies Hearing Impairment: Denies, Hard of Hearing, Bilateral Hearing Aide Cancer: Yes Skin Did You Recieve Any Treatments: No Psychosocial: Yes Anxiety Integumentary: No Blood Disorders: No Adverse Reaction/Blood Tranf: No (N/A) (SERINA UNDERWOOD) Family Medical History Arthritis 19 FATHER 19 MOTHER G8 BROTHER G8 SISTER Completed stroke 19 FATHER Diabetes mellitus 19 MOTHER Hypertension 19 FATHER 19 MOTHER G8 BROTHER G8 SISTER Kidney disease G8 SISTER Thyroid disease G8 SISTER Physical Exam Vital Signs Vital Signs - First Documented 01/15/23 10:58 Temp 36.6 Pulse 65 Resp 16 B/P (MAP) 144/78 (100) Pulse Ox 97 (BETO FORTUNE MD) Vital Signs Capillary Refill : (SERINA UNDERWOOD) Height, Weight, BMI Height: 5'6.00" Weight: 267lbs. 2.0oz. 121.547065ys; 39.75 BMI Method: General Appearance: WD/WN, no apparent distress HEENT: PERRL/EOMI, normal ENT inspection, TMs normal, pharynx normal Neck: non-tender, full range of motion, supple Cardiovascular: regular rate, rhythm, no edema, no gallop, no JVD Respiratory: chest non-tender, lungs clear, normal breath sounds, no respiratory distress, no accessory muscle use Gastrointestinal: normal bowel sounds, non tender, soft, no organomegaly Back: normal inspection, no CVA tenderness, no vertebral tenderness Shoulder: normal inspection, non-tender Elbow/Forearm: normal inspection, non-tender, Left Wrist: Yes no evidence of injury, Yes normal ROM (left wrist) Hand: Left, laceration (2 1 cm laceration to the left ring palmar finger. Normal active range of motion at the DIP, PIP joint. No nail involvement.) Neurologic/Psychiatric: interactive media specialist II-XII nml as tested, no motor/sensory deficits, normal mood/affect, oriented x 3 Skin: other (Two 1 cm lacerations to the left palmar ring finger) (SERINA UNDERWOOD) Procedures/Interventions Wound Location: Upper Extremities Other Wound Location left ring finger Wound Length (cm): 2 Wound's Depth, Shape: superficial, sub Q Wound Explored: clean Irrigated w/ Saline (ccs): 300 Betadine Prep?: Yes Anesthesia: 1% Lidocaine Volume Anesthetic (ccs): 4 Suture: Ethlion Suture Size: 5-0 Number of Sutures: 12 Layer Closure?: 1 Sterile Dressing Applied?: Yes (SERINA UNDERWOOD) Progress/Results/Core Measures Results/Orders Medications Given in ED Current Medications Medications Dose Ordered Sig/Bob Route Start Time Stop Time Status Last Admin Dose Admin Lidocaine HCl 10 ml ONCE ONCE INJ 01/15/23 11:15 01/15/23 11:16 DC 01/15/23 11:30 10 ML (BETO FORTUNE MD) Vital Signs/I&O 01/15/23 01/15/23 10:58 11:58 Temp 36.6 36.6 Pulse 65 65 Resp 16 16 B/P (MAP) 144/78 (100) 144/78 Pulse Ox 97 97 (BETO FORTUNE MD) Departure Communication (PCP) Patient with two 1 cm lacerations to her left palmar ring finger. Adipose involvement. ` No obvious nail involvement. Neurovascular intact. Normal active range of motion at the DIP and PIP joint. Neurovascular intact. No muscular or tendon involvement. . Extensive irrigation with normal saline and Shur cleans. Placed twelve 5-0 Ethilon sutures here in the ED without difficulties. Procedure document note. Up-to-date on her tetanus. Discussed Neosporin twice a day. Finger splint for comfort. Remove sutures in 10 days. If increased redness or swelling to return back to ED. (SERINA UNDERWOOD) Impression Primary Impression: Finger laceration Disposition: 01 HOME, SELF-CARE Condition: Stable Departure-Patient Inst. Decision time for Depature: 11:49 (SERINA UNDERWOOD) Referrals: ORENDER,JACQUE S DO (PCP) Primary Care Physician Patient Instructions: Laceration Repair With Stitches ED Add. Discharge Instructions: Remove stitches in 10 days. Topical Neosporin twice a day. Keep the area covered with finger splint. If increased redness or swelling to return back to ED. ATTENDING PHYSICIAN NOTE: I was physically present as attending physician in the emergency department during the care of this patient, but I was not directly involved in the decision making or delivery of care for this patient. (BETO FORTUNE MD) SERINA UNDERWOOD Jan 15, 2023 11:07 BETO FORTUNE MD Jan 15, 2023 19:50
[2023-01-15] MEDS ORDERED: LIDOCAINE 1% INJ 10 ML VIAL INJ ONE (11:15)
[2023-01-15 11:58] VITALS: BP 144/78
== END 2023-01-15 11:58 | disposition home or self-care (01) ==
LOC: EDUNIT# 10:46 → ER 10:48
DX: S61.215A Laceration without foreign body of left ring finger without damage to nail, initial encounter (principal); G47.30 Sleep apnea, unspecified; Z91.040 Latex allergy status; Z88.2 Allergy status to sulfonamides; Z99.89 Dependence on other enabling machines and devices; W27.8XXA Contact with other nonpowered hand tool, initial encounter
CPT/HCPCS: 12032

== ENCOUNTER 2023-01-26 10:07 | Emergency (ER) | payer MEDICARE ==
[~2023-01-26] VITALS: Ht 165 cm; Wt 81.0 kg
== END 2023-01-26 10:25 | disposition home or self-care (01) ==
LOC: EDUNIT# 10:07 → ER 10:09
DX: Z48.02 Encounter for removal of sutures (principal)

== ENCOUNTER → 2023-01-29 | Outpatient (CLI) | payer MEDICARE ==
--- NOTE | 2023-01-30 11:19 | Diagnostic Imaging Report ---
Indication: Routine screening. Comparison is made with prior mammogram from 01/27/2022 and 01/14/2021. 2-D and 3-D bilateral screening mammography was performed with CAD. The current study was also evaluated with a Computer Aided Detection (CAD) system. Both breasts remain heterogeneously dense, limiting the sensitivity of mammography. A benign-appearing nodule left breast appears stable. No spiculated mass or malignant-appearing microcalyx calcifications are seen. Axillae are unremarkable. IMPRESSION: BI-RADS Category 2 No mammographic features suspicious for malignancy are identified. ACR BI-RADS Category 2: Benign findings. Result letter will be mailed to the patient. Note: At least 10% of breast cancer is not imaged by mammography. Dictated by: Dictated on workstation # [id number]
== END ==
LOC: RAD 14:26
PROVIDERS: ATTEND Family Medicine
DX: Z12.31 Encounter for screening mammogram for malignant neoplasm of breast (principal)
CPT/HCPCS: 77063; 77067